=== PATIENT | male | born 1930 | race Caucasian/White ===

== ENCOUNTER 2017-01-05 15:16 | Inpatient (IN) | payer OTHER ==
[~2017-01-05] VITALS: Ht 180.3 cm; Wt 104.3 kg
[2017-01-05 15:21] VITALS: BP 116/84
--- NOTE | 2017-01-05 15:23 | Emergency Room Report ---
History of Present Illness General Chief Complaint: Dyspnea/Respdistress Source: Patient, EMS Present Illness HPI Patient is 86-year-old male who presented after increased difficulty with shortness of breath. The patient was sent in from his nursing facility. Patient prior history of dementia as well as psychosis. The patient gradual onset of symptoms. Patient was noted to have diminished oxygen saturation was sent in for further evaluation. Patient was noted to have prior history of bronchitis. He had been afebrile. The patient was noted to have prior DO NOT RESUSCITATE order. Patient was given comfort measures. Allergies: Coded Allergies: No Known Allergies (Verified , 05/15/09) Patient History Past Medical History: see triage record Reviewed Nursing Documentation: PMH: Agreed, PSxH: Agreed Nursing Documentation-PMH Past Medical History: No History, Except For Hx Hypertension: Yes Hx Gastrointestinal Problems: Yes - GERD Review of Systems All Other Systems: limited - by mental status Physical Exam Vital Signs Date Time Temp Pulse Resp B/P (MAP) Pulse Ox O2 Delivery O2 Flow Rate FiO2 01/05/17 15:11 97.9 80 20 150/94 96 Non-Rebreather 15.0 Sp02 EP Interpretation: reviewed, normal General Appearance: normal inspection, alert, moderate distress, Chronically Ill Head: atraumatic ENT: normal ENT inspection, hearing grossly normal, normal voice Neck: normal inspection, full range of motion, supple, no bony tend, other - trachea deviation Respiratory: normal inspection, no retraction, no wheezing, rhonchi Cardiovascular #1: no edema, irregularly irregular Gastrointestinal: normal inspection, normal bowel sounds, non tender, soft, no guarding, no hernia Genitourinary: no CVA tenderness Musculoskeletal: normal inspection, back normal, normal range of motion Neurologic: normal inspection, alert, oriented x3, responsive, forger helper III-XII nml as tested, speech normal Psychiatric: normal inspection, judgement/insight normal, mood/affect normal Skin: normal inspection, normal color, no rash Medical Decision Making Diagnostic Impression: Primary Impression: Pneumonia Additional Impression: Hyponatremia ER Course Patient presented for shortness of breath. Differential included but was not limited to anemia, pneumonia, pneumothorax, myocardial infarction, pericardial effusion, congestive heart failure, acidosis. The patient's POLST was noted to have comfort measures only. Because of complexity of patient's case laboratory testing and imaging studies were ordered. The patient's CODE STATUS was discussed with his sister who stated that he is DO NOT RESUSCITATE. She stated that she consented to hospitalization. Chest x- ray one view interpreted by me showed a right lung atelectasis with white out of the lung, mild tracheal deviation. The patient was noted to have hyponatremia. Dr. Graeme Oropeza was contacted for inpatient management Labs Test 01/05/17 16:34 White Blood Count 24.2 K/UL (4.8-10.8) Red Blood Count 4.12 M/UL (4.70-6.10) Hemoglobin 12.8 G/DL (14.2-18.0) Hematocrit 40.8 % (42.0-52.0) Mean Corpuscular Volume 99 FL (80-99) Mean Corpuscular Hemoglobin 31.2 PG (27.0-31.0) Mean Corpuscular Hemoglobin Concent 31.5 G/DL (32.0-36.0) Red Cell Distribution Width 11.2 % (11.6-14.8) Platelet Count 452 K/UL (150-450) Mean Platelet Volume 6.7 FL (6.5-10.1) Neutrophils (%) (Auto) % (45.0-75.0) Lymphocytes (%) (Auto) % (20.0-45.0) Monocytes (%) (Auto) % (1.0-10.0) Eosinophils (%) (Auto) % (0.0-3.0) Basophils (%) (Auto) % (0.0-2.0) Differential Total Cells Counted 100 Neutrophils % (Manual) 86 % (45-75) Lymphocytes % (Manual) 3 % (20-45) Monocytes % (Manual) 11 % (1-10) Eosinophils % (Manual) 0 % (0-3) Basophils % (Manual) 0 % (0-2) Band Neutrophils 0 % (0-8) Platelet Estimate Adequate Platelet Morphology Normal Polychromasia 1+ Macrocytosis 1+ Sodium Level 118 MMOL/L (136-145) Potassium Level 4.7 MMOL/L (3.5-5.1) Chloride Level 86 MMOL/L (98-107) Carbon Dioxide Level 25 MMOL/L (21-32) Anion Gap 7 (5-15) Blood Urea Nitrogen 21 mg/dL (7-18) Creatinine 1.2 MG/DL (0.55-1.30) Estimat Glomerular Filtration Rate mL/min (>60) Glucose Level 166 MG/DL (74-106) Calcium Level 9.3 MG/DL (8.5-10.1) Total Bilirubin 0.4 MG/DL (0.2-1.0) Aspartate Amino Transf (AST/SGOT) 26 U/L (15-37) Alanine Aminotransferase (ALT/SGPT) 17 U/L (12-78) Alkaline Phosphatase 152 U/L (46-116) Troponin I 0.017 ng/mL (0.000-0.056) Pro-B-Type Natriuretic Peptide 4686 (0-125) Total Protein 7.8 G/DL (6.4-8.2) Albumin 2.3 G/DL (3.4-5.0) Globulin 5.5 g/dL Albumin/Globulin Ratio 0.4 (1.0-2.7) EKG Diagnostic Results Rate: tachycardiac Rhythm: other - afib rvr ST Segments: no acute changes ASA given to the pt in ED: No Rhythm Strip Diag. Results EP Interpretation: yes Rhythm: no PVC's, no ectopy, other - afib Last Vital Signs Date Time Temp Pulse Resp B/P (MAP) Pulse Ox O2 Delivery O2 Flow Rate FiO2 01/05/17 15:11 97.9 80 20 150/94 96 Non-Rebreather 15.0 Status: improved Disposition: ADMITTED INPATIENT Condition: Serious Neel Pike Jan 05, 2017 15:23
[2017-01-05] MEDS ORDERED: Albuterol/Ipratropium 3ml neb HHN ONE (15:30)
[2017-01-05] MEDS ORDERED: Solu-MEDROL 125mg Inj IVP ONE (15:30)
[2017-01-05 16:50] LABS: MEAN CORPUSCULAR HEMOGLOBIN 31.2 PG (27.0-31.0); MEAN CORPUSCULAR HGB CONC 31.5 G/DL (32.0-36.0); MEAN CORPUSCULAR VOLUME 99 FL (80-99); MEAN PLATELET VOLUME 6.7 FL (6.5-10.1); PLATELET COUNT 452 K/UL (150-450); RED BLOOD COUNT 4.12 M/UL (4.70-6.10); RED CELL DISTRIBUTION WIDTH 11.2 % (11.6-14.8)
[2017-01-05 16:55] LABS: WHITE BLOOD COUNT 24.2 K/UL (4.8-10.8)
[2017-01-05] MEDS ORDERED: Cefepime HCl 2 GM in D5W 110 ML IVPB ONE (17:00)
[2017-01-05] MEDS ORDERED: Cefepime 2gm ONE (17:07)
[2017-01-05 17:32] LABS: LYMPHOCYTES % (MANUAL) 3 % (20-45); NEUTROPHILS % (MANUAL) 86 % (45-75); TOTAL CELLS COUNTED 100
[2017-01-05 17:33] LABS: ALANINE AMINOTRANSFERASE 17 U/L (12-78); ALBUMIN/GLOBULIN RATIO 0.4 (1.0-2.7); ANION GAP 7 (5-15); ASPARTATE AMINO TRANSFERASE 26 U/L (15-37); BAND NEUTROPHILS % (MANUAL) 0 % (0-8); BASOPHILS % (MANUAL) 0 % (0-2); CALCIUM 9.3 MG/DL (8.5-10.1); CARBON DIOXIDE 25 MMOL/L (21-32); CHLORIDE 86 MMOL/L (98-107); CREATININE 1.2 MG/DL (0.55-1.30); EOSINOPHILS % (MANUAL) 0 % (0-3); PLATELET ESTIMATE ADEQUATE; PLATELET MORPHOLOGY NORMAL; POTASSIUM 4.7 MMOL/L (3.5-5.1); TOTAL PROTEIN 7.8 G/DL (6.4-8.2)
[2017-01-05 17:34] LABS: MACROCYTES 1+; POLYCHROMASIA 1+
[2017-01-05 17:35] LABS: SODIUM 118 MMOL/L (136-145)
[2017-01-05 18:00] VITALS: BP 116/84
[2017-01-05] MEDS ORDERED: SIMETHICONE80 MG ORAL (18:11)
[2017-01-05] MEDS ORDERED: ACETAMINOPHEN325 M1 ORAL (18:11)
[2017-01-05] MEDS ORDERED: PHENERGAN W CODEINE ORAL (18:17)
[2017-01-05] MEDS ORDERED: PRAVASTATIN SOD20 M1 ORAL (18:17)
[2017-01-05] MEDS ORDERED: OXYBUTYNIN CHLOR5 M2 PO (18:17)
[2017-01-05] MEDS ORDERED: COLACE100 MG ORAL (18:17)
[2017-01-05] MEDS ORDERED: SYMBICORT 16010.2 G1 IH (18:17)
[2017-01-05] MEDS ORDERED: PROSCAR5 MG ORAL (18:17)
[2017-01-05] MEDS ORDERED: TAMSULOSIN HCL0.4 MG ORAL (18:20)
[2017-01-05] MEDS ORDERED: DUONEB 0.5-3(2.53 ML HHN (18:20)
[2017-01-05] MEDS ORDERED: TRAZODONE HCL150 MG ORAL (18:20)
[2017-01-05] MEDS ORDERED: MULTIVITAMINS1 EAC8 ORAL (18:21)
[2017-01-05] MEDS ORDERED: AMLODIPINE BESY10 MG ORAL (18:24)
[2017-01-05] MEDS ORDERED: ASPIRIN325 MG ORAL (18:24)
[2017-01-05] MEDS ORDERED: PROSTAT SUGARFREE ORAL (18:24)
[2017-01-05] MEDS ORDERED: VITAMIN D1000 UNI1 ORAL (18:24)
[2017-01-05] MEDS ORDERED: ATENOLOL50 MG ORAL (18:24)
[2017-01-05] MEDS ORDERED: OMEGA 3 1,0001 EACH PO (18:24)
[2017-01-05] MEDS: Albuterol/Ipratropium 3ml neb HHN SCH ×2 (19:00→23:55)
[2017-01-05] MEDS ORDERED: Vancomycin 1 GM in D5W 275 ML IV SCH (19:00)
[2017-01-05 20:00] VITALS: BP 158/124
[2017-01-05] MEDS: Vancomycin 1.5 GM/D5W 250ML IVPB SCH (21:32)
[2017-01-05 21:40] VITALS: BP 127/78
--- NOTE | 2017-01-05 23:17 | History and Physical Report ---
DATE OF ADMISSION: 01/05/2017 CHIEF COMPLAINT: Short of breath. PRESENT ILLNESS: This long-term senior living resident was transferred to the emergency room because of a low saturation and some shortness of breath. He has dementia and is a poor historian. He has some chronic cough and has been followed recently for possible pneumonia and pleural effusion. PAST MEDICAL HISTORY: Hypertension, dementia, prostate enlargement, acid reflux, diverticulosis, osteoarthritis, TURP, and cataract surgery. ALLERGIES: None. MEDICATIONS: Reviewed and reconciled. SOCIAL HISTORY: He does not drink or smoke. He lives in a senior living. REVIEW OF SYSTEMS: Cannot be obtained. PHYSICAL EXAMINATION: VITAL SIGNS: Temperature is normal, pulse is 80, respirations 20, blood pressure 150/94, and saturation was 96% on non-rebreather mask. GENERAL: He is alert, but somewhat argumentative. He appears overweight. HEENT: Head is normocephalic. NECK: No jugular vein distention. CHEST: Decreased breath sounds on the right side. The neck shows the trachea is deviated to the right. There are rhonchi on the left side. CARDIAC: Rhythm is regular. Heart tones are distant. ABDOMEN: Soft and nontender. Liver and spleen not enlarged. EXTREMITIES: No clubbing, cyanosis, or edema. LABORATORY DATA: Laboratory studies show the sodium is low at 118, potassium is normal, creatinine 1.2, blood sugar 166, alkaline phosphatase elevated at 152, BNP 4686. Troponin normal. Albumin 2.3. Hematology shows white count is 24,200, hemoglobin is 12.8, and platelets are high at 452,000. Chest x-ray shows complete atelectasis of the right lung. I spoke to the sister and confirmed that he is comfort measures only and no Code Blue. A POLST is on file at the nursing facility, but they did not send this with him. I have reviewed the notes from [facility] regarding this and his medical history. IMPRESSIONS: 1. Pneumonia with right lung atelectasis. 2. Dementia. 3. Hypertension. 4. Prostate enlargement. 5. Severe hyponatremia. 6. Peripheral vascular disease. 7. Major depression, recurrent, with moderate behavioral disturbance. 8. Hyperlipidemia. PLAN: The patient will be treated with oxygen and respiratory treatments, chest PT, antibiotics, and we will give saline. Nephrology consultation will be requested. He will be DNR as confirmed with his sister. Graeme Oropeza M.D. DR: HUSAM JOB#: [id number] CC:
[2017-01-06] VITALS: BP 156/94
[2017-01-06] MEDS: LORazepam 1mg tab ORAL PRN (02:01)
[2017-01-06] MEDS ORDERED: Zosyn 4.5gm inj ONE (03:10)
[2017-01-06] MEDS: Piperacillin/Tazobactam 4.5 GM in NS 110 ML IV SCH ×5 (03:23→22:00)
[2017-01-06] MEDS: Albuterol/Ipratropium 3ml neb HHN SCH ×6 (03:40→23:05)
[2017-01-06 07:51] LABS: MEAN CORPUSCULAR HEMOGLOBIN 31.6 PG (27.0-31.0); MEAN CORPUSCULAR HGB CONC 32.4 G/DL (32.0-36.0); MEAN CORPUSCULAR VOLUME 98 FL (80-99); MEAN PLATELET VOLUME 7.3 FL (6.5-10.1); PLATELET COUNT 430 K/UL (150-450); RED BLOOD COUNT 4.15 M/UL (4.70-6.10); RED CELL DISTRIBUTION WIDTH 11.1 % (11.6-14.8); WHITE BLOOD COUNT 20.3 K/UL (4.8-10.8)
[2017-01-06 07:58] LABS: ALANINE AMINOTRANSFERASE 16 U/L (12-78); ALBUMIN/GLOBULIN RATIO 0.4 (1.0-2.7); ANION GAP 9 (5-15); ASPARTATE AMINO TRANSFERASE 23 U/L (15-37); CARBON DIOXIDE 24 MMOL/L (21-32); CHLORIDE 87 MMOL/L (98-107); CREATININE 1.1 MG/DL (0.55-1.30); POTASSIUM 4.5 MMOL/L (3.5-5.1); SODIUM 120 MMOL/L (136-145); TOTAL PROTEIN 7.6 G/DL (6.4-8.2)
[2017-01-06 08:41] VITALS: BP 148/78
--- NOTE | 2017-01-06 09:53 | Diagnostic Imaging Report ---
Indication: SOB Technique: One view of the chest Comparison: 05/16/2009 Findings: There is complete opacification of the right hemithorax. The patient is rotated to the right. The left lung and pleural space are clear except for mild interstitial prominence. The left hemidiaphragm is markedly elevated. The heart size is probably normal Impression: Complete opacification of the right hemithorax. This may reflect atelectasis of the right lung, versus mass with, versus combination of the two
[2017-01-06 11:38] LABS: BAND NEUTROPHILS % (MANUAL) 0 % (0-8); BASOPHILS % (MANUAL) 0 % (0-2); EOSINOPHILS % (MANUAL) 0 % (0-3); LYMPHOCYTES % (MANUAL) 3 % (20-45); NEUTROPHILS % (MANUAL) 91 % (45-75); PLATELET ESTIMATE ADEQUATE; PLATELET MORPHOLOGY NORMAL; TOTAL CELLS COUNTED 100
[2017-01-06 11:56] VITALS: BP 151/91
--- NOTE | 2017-01-06 14:56 | Pulmonology Progress Note ---
Assessment/Plan Assessment/Plan 1. Pneumonia with right lung atelectasis. 2. Dementia. 3. Hypertension. 4. Prostate enlargement. 5. Severe hyponatremia. 6. Peripheral vascular disease. 7. Major depression, recurrent, with moderate behavioral disturbance. 8. Hyperlipidemia. called nephrology Na better at 120 f/u CXR CT chest cont abx Subjective Respiratory: Reports: dry cough, shortness of breath Allergies: Coded Allergies: No Known Allergies (Verified , 05/15/09) Objective Last 24 Hour Vital Signs Date Time Temp Pulse Resp B/P (MAP) Pulse Ox O2 Delivery O2 Flow Rate FiO2 01/06/17 14:36 126 151/91 01/06/17 14:36 126 151/91 01/06/17 11:56 98.0 126 22 151/91 93 Non-Rebreather 14.0 01/06/17 11:10 102 20 96 Venturi Mask 14.0 55 01/06/17 11:04 97 20 55 Venturi Mask 14.0 55 01/06/17 08:41 97.4 54 18 148/78 99 Non-Rebreather 14.0 01/06/17 07:25 119 23 96 Venturi Mask 14.0 55 01/06/17 07:20 114 20 55 Venturi Mask 14.0 55 01/06/17 07:20 115 23 Venturi Mask 14.0 55 01/06/17 03:47 96 22 96 Non-Rebreather 15.0 100 01/06/17 03:47 108 24 93 Venturi Mask 14.0 55 01/06/17 00:00 97.9 96 20 156/94 94 Venturi Mask 01/05/17 23:57 106 24 100 Non-Rebreather 15.0 100 01/05/17 23:57 101 22 100 Non-Rebreather 15.0 100 01/05/17 21:40 97.9 88 30 127/79 100 Non-Rebreather 15.0 100 01/05/17 21:40 98.4 88 35 127/78 98 Non-Rebreather 15.0 01/05/17 20:00 98.4 102 35 158/124 98 Non-Rebreather 15.0 01/05/17 19:48 110 25 100 Non-Rebreather 15.0 100 01/05/17 19:40 98 23 100 Non-Rebreather 15.0 100 01/05/17 19:40 96 23 Non-Rebreather 15.0 100 01/05/17 18:00 116 36 116/84 98 Non-Rebreather 15.0 01/05/17 16:40 115 26 100 Non-Rebreather 15.0 100 01/05/17 16:30 102 25 98 Non-Rebreather 15.0 100 01/05/17 16:30 102 25 Non-Rebreather 15.0 100 01/05/17 15:21 100 33 Non-Rebreather 15.0 01/05/17 15:21 100 33 116/84 100 Non-Rebreather 15.0 01/05/17 15:11 97.9 80 20 150/94 96 Non-Rebreather 15.0 Intake and Output 01/06/17 01/07/17 19:00 07:00 Intake Total 220 ml Balance 220 ml Intake Oral 220 ml # Voids 2 HEENT: atraumatic Respiratory/Chest: decreased breath sounds - right, rhonchi - left Cardiovascular: regular rhythm, other - distant tones Abdomen: soft, non tender Extremities: other - edema 1+ Laboratory Tests 01/05/17 16:34: White Blood Count 24.2*H, Red Blood Count 4.12L, Hemoglobin 12.8L, Hematocrit 40.8L, Mean Corpuscular Volume 99, Mean Corpuscular Hemoglobin 31.2H, Mean Corpuscular Hemoglobin Concent 31.5L, Red Cell Distribution Width 11.2L, Platelet Count 452H, Mean Platelet Volume 6.7, Neutrophils (%) (Auto) , Lymphocytes (%) (Auto) , Monocytes (%) (Auto) , Eosinophils (%) (Auto) , Basophils (%) (Auto) , Differential Total Cells Counted 100, Neutrophils % ( Manual) 86H, Lymphocytes % (Manual) 3L, Monocytes % (Manual) 11H, Eosinophils % (Manual) 0, Basophils % (Manual) 0, Band Neutrophils 0, Platelet Estimate Adequate, Platelet Morphology Normal, Polychromasia 1+, Macrocytosis 1+, Sodium Level 118*L, Potassium Level 4.7, Chloride Level 86L, Carbon Dioxide Level 25, Anion Gap 7, Blood Urea Nitrogen 21H, Creatinine 1.2, Estimat Glomerular Filtration Rate , Glucose Level 166H, Calcium Level 9.3, Total Bilirubin 0.4, Aspartate Amino Transf (AST/SGOT) 26, Alanine Aminotransferase (ALT/SGPT) 17, Alkaline Phosphatase 152H, Troponin I 0.017, Pro-B-Type Natriuretic Peptide 4686H, Total Protein 7.8, Albumin 2.3L, Globulin 5.5, Albumin/Globulin Ratio 0.4L 01/06/17 05:10: White Blood Count 20.3H, Red Blood Count 4.15L, Hemoglobin 13.1L, Hematocrit 40.5L, Mean Corpuscular Volume 98, Mean Corpuscular Hemoglobin 31.6H, Mean Corpuscular Hemoglobin Concent 32.4, Red Cell Distribution Width 11.1L, Platelet Count 430, Mean Platelet Volume 7.3, Neutrophils (%) (Auto) , Lymphocytes (%) (Auto) , Monocytes (%) (Auto) , Eosinophils (%) (Auto) , Basophils (%) (Auto) , Differential Total Cells Counted 100, Neutrophils % ( Manual) 91H, Lymphocytes % (Manual) 3L, Monocytes % (Manual) 6, Eosinophils % ( Manual) 0, Basophils % (Manual) 0, Band Neutrophils 0, Platelet Estimate Adequate, Platelet Morphology Normal, Sodium Level 120L, Potassium Level 4.5, Chloride Level 87L, Carbon Dioxide Level 24, Anion Gap 9, Blood Urea Nitrogen 26H, Creatinine 1.1, Estimat Glomerular Filtration Rate , Glucose Level 195H, Calcium Level 9.0, Total Bilirubin 0.4, Aspartate Amino Transf (AST/SGOT) 23, Alanine Aminotransferase (ALT/SGPT) 16, Alkaline Phosphatase 143H, Total Protein 7.6, Albumin 2.2L, Globulin 5.4, Albumin/Globulin Ratio 0.4L, Red Blood Cell Morphology Normal Current Medications Medications (Trade) Dose Ordered Sig/Trini Route PRN Reason Start Time Stop Time Status Last Admin Dose Admin Acetaminophen (Tylenol) 650 mg Q4H PRN ORAL Mild Pain (Pain Scale 1-3) 01/05/17 18:00 02/04/17 17:59 Albuterol/ Ipratropium (DuoNeb 0.5-3(2.5)mg/3ml) 3 ml Q4HRT HHN 01/05/17 19:00 01/10/17 18:59 01/06/17 11:09 Amlodipine Besylate (Norvasc) 10 mg DAILY ORAL 01/06/17 14:30 02/05/17 14:29 01/06/17 14:36 Aspirin (ASA) 325 mg DAILY ORAL 01/06/17 14:30 02/05/17 14:29 01/06/17 14:35 Atenolol (Tenormin) 50 mg DAILY ORAL 01/06/17 14:30 02/05/17 14:29 01/06/17 14:36 Docusate Sodium (Colace) 250 mg BID ORAL 01/06/17 18:00 02/05/17 17:59 Finasteride (Proscar) 5 mg DAILY ORAL 01/07/17 09:00 02/06/17 08:59 Lorazepam (Ativan) 1 mg Q4H PRN ORAL For Anxiety 01/05/17 18:00 01/12/17 17:59 01/06/17 02:01 Multivitamins (Multivitamins) 1 tab DAILY ORAL 01/07/17 09:00 02/06/17 08:59 Oxybutynin Chloride (Ditropan) 5 mg DAILY ORAL 01/07/17 09:00 02/06/17 08:59 Piperacillin Sod/ Tazobactam Sod 4.5 gm/Sodium Chloride 110 ml @ 27.5 mls/hr EVERY 8 HOURS IV 01/05/17 22:00 01/12/17 21:59 01/06/17 10:49 Pravastatin Sodium (Pravachol) 40 mg BEDTIME ORAL 01/06/17 21:00 02/05/17 20:59 Sodium Chloride 1,000 ml @ 100 mls/hr Q10H IVLG 01/05/17 18:30 02/04/17 18:29 01/06/17 14:36 Tamsulosin HCl (Flomax) 0.4 mg BEDTIME ORAL 01/06/17 21:00 02/05/17 20:59 Trazodone HCl (Desyrel) 150 mg BEDTIME ORAL 01/06/17 21:00 02/05/17 20:59 Vancomycin HCl (Vanco rx to dose) 1 ea DAILY PRN MISC PER RXPROTOCOL 01/05/17 18:30 02/04/17 18:29 Vancomycin HCl/ Dextrose 250 ml @ 125 mls/hr Q24H IVPB 01/05/17 20:00 01/10/17 19:59 01/05/17 21:32 Vitamin D (Vitamin D) 1,000 intlu DAILY ORAL 01/07/17 09:00 02/06/17 08:59 TRACEE MILTON Jan 06, 2017 14:56
--- NOTE | 2017-01-06 15:28 | Consultation ---
Consult Note Consult Note #[id number] Full nephrology consult dicatated JULY FORD Jan 06, 2017 15:28
[2017-01-06 15:44] LABS: URIC ACID 5.7 MG/DL (2.6-7.2)
[2017-01-06 16:05] VITALS: BP 116/91
[2017-01-06] MEDS: Docusate 250mg cap ORAL SCH ×2 (17:50→17:53)
[2017-01-06 19:51] VITALS: BP 136/74
--- NOTE | 2017-01-06 20:30 | Consultation ---
DATE OF CONSULTATION: 01/06/2017 NEPHROLOGY CONSULT REFERRING PHYSICIAN: Graeme Oropeza M.D. REASON FOR CONSULTATION: Hyponatremia. HISTORY OF PRESENT ILLNESS: The patient is an very pleasant 86-year-old white male who is obese has some underlying dementia and hypertension has been in a long-term shelter was transferred to the emergency room of [facility] with low saturation and some shortness of breath, very poor historian, has had some chronic cough. Chest x-ray in the emergency room showing evidence of the complete whiteout of the right lung, possibly pleural effusion, and may be some pneumonia underneath. White counts [place] range [address]. He was found to have a serum sodium of 118 and has been started on normal saline at 100 mL/hour. Serum sodium now has come up to about 120. I have been asked to see him for this electrolyte abnormality. PAST MEDICAL HISTORY: Significant for dementia, benign prostatic hypertrophy, gastroesophageal reflux disease, diverticulosis, and osteoarthritis. PAST SURGICAL HISTORY: Status post TURP, status post cataract surgery. MEDICATIONS: At this point includes normal saline 100 mL/hour. He received cefepime and metronidazole in the emergency room. He has been started on Zosyn 4.5 gram IV q. 8 h, vancomycin 1.5 gram IV q. 24 h, amlodipine 10 mg p.o. daily, aspirin 325 mg p.o. daily, atenolol 50 mg p.o. daily, Proscar 5 mg p.o. daily, Atrovent nebulizer q. 4 h p.r.n., Ativan 1 mg p.o. q. 4 h p.r.n., Solu-Medrol 125 mg IV once, multivitamin one tablet p.o. daily, Ditropan 5 mg p.o. daily, pravastatin 40 mg p.o. daily, Flomax 0.4 mg p.o. daily, trazodone 150 mg p.o. daily, and vitamin D 1000 units p.o. daily. ALLERGIES: None. SOCIAL HISTORY: Resident of a shelter. No drinking or tobacco use at this point. REVIEW OF SYSTEMS: Impossible since he is not able to give me a very fruitful history. PHYSICAL EXAMINATION: GENERAL: He does not seem to be in much acute distress. He is obese. VITAL SIGNS: Blood pressure is 151/91, pulse of 126, respirations 22, temperature 98 degree Fahrenheit. HEENT: Head is atraumatic. Eyes, pupils are reactive to light. No evidence of papilledema. Ears canals are clear. Tympanic membranes are intact. Nose, nares are patent without any nasal discharge. He has a Venturi mask on. NECK: Supple. Jugular venous distention seems to be within normal limits or mildly increased. No cervical adenopathy. No thyromegaly. HEART: Regular rhythm. Tachycardic. LUNGS: Few rhonchi in both bases. Decreased air excursion on the right side. ABDOMEN: Supple. Bowel sounds positive. No hepatosplenomegaly. EXTREMITIES: Lower extremity shows 1+ pedal edema. NEUROLOGICAL: Cranial nerves seems to be grossly intact. He is oriented x3. LABORATORY DATA: Sodium 120, potassium 4.5, chloride 87, carbon dioxide 24, BUN 26, creatinine 1.1. WBC is 20.3, hemoglobin 13.1, hematocrit 40.5, and platelets of 438. IMPRESSION: 1. Hyponatremia with him being somewhat euvolemic or maybe borderline . I am suspecting possibility of sepsis and prerenal state causing this hyponatremia however in the presence of a lung issue, possible pneumonia, and syndrome of inappropriate secretion of ADH is also in the list of differential. 2. He does not seem to be in congestive heart failure. 3. Complete whiteout of the right lung could be due to some empyema and maybe underlying pneumonia. 4. Obesity. 5. Dementia. PLAN: I agree with IV fluids at this point with normal saline at 100 mL/hour. I am going to check a serum and urine osmolality, urine sodium, and serum uric acid, probably he will require thoracentesis and evaluation of the fluid of the right lung for possible empyema. I agree with IV antibiotics at this point and apparently he is DNR at this point. At the end, I would like to thank you, Dr. Oropeza for letting me be involved in the care of this very nice gentleman. Please do not hesitate to contact me if you have any questions. Adan Pizarro M.D. DR: Mike JOB#: [id number] CC:
[2017-01-06] MEDS: Tamsulosin 0.4mg cap ORAL SCH (20:31)
[2017-01-06] MEDS: TraZODone 100mg tab ORAL SCH (20:31)
[2017-01-06] MEDS: Vancomycin 1.5 GM/D5W 250ML IVPB SCH (21:47)
--- NOTE | 2017-01-06 23:03 | Cardiology Report ---
APPROVED REPORT EKG Measurement Heart [id number] Atrial fibrillation with rapid ventricular response Nonspecific ST and T wave abnormality Abnormal ECG
[2017-01-07] VITALS: BP 143/77
[2017-01-07] MEDS: Albuterol/Ipratropium 3ml neb HHN SCH ×6 (02:55→23:00)
[2017-01-07 04:00] VITALS: BP 123/57
[2017-01-07] MEDS: Piperacillin/Tazobactam 4.5 GM in NS 110 ML IV SCH ×3 (04:58→22:00)
[2017-01-07 07:10] LABS: MEAN CORPUSCULAR HEMOGLOBIN 31.9 PG (27.0-31.0); MEAN CORPUSCULAR HGB CONC 32.5 G/DL (32.0-36.0); MEAN CORPUSCULAR VOLUME 98 FL (80-99); PLATELET COUNT 469 K/UL (150-450); RED BLOOD COUNT 4.13 M/UL (4.70-6.10); RED CELL DISTRIBUTION WIDTH 11.3 % (11.6-14.8)
[2017-01-07 07:44] LABS: WHITE BLOOD COUNT 25.5 K/UL (4.8-10.8)
[2017-01-07] MEDS: Oxybutynin 5mg tab ORAL SCH (08:27)
[2017-01-07] MEDS: Vitamin D 1000 IU Tab ORAL SCH (08:31)
[2017-01-07] MEDS: Docusate 250mg cap ORAL SCH ×3 (08:31→17:50)
[2017-01-07 09:00] VITALS: BP 135/61
[2017-01-07 09:47] LABS: BAND NEUTROPHILS % (MANUAL) 0 % (0-8); BASOPHILS % (MANUAL) 0 % (0-2); EOSINOPHILS % (MANUAL) 0 % (0-3); LYMPHOCYTES % (MANUAL) 5 % (20-45); NEUTROPHILS % (MANUAL) 83 % (45-75); PLATELET ESTIMATE INCREASED; PLATELET MORPHOLOGY NORMAL; TOTAL CELLS COUNTED 100
--- NOTE | 2017-01-07 11:49 | Pulmonology Progress Note ---
Assessment/Plan Assessment/Plan 1. Pneumonia with right lung atelectasis. 2. Dementia. 3. Hypertension. 4. Prostate enlargement. 5. Severe hyponatremia. 6. Peripheral vascular disease. 7. Major depression, recurrent, with moderate behavioral disturbance. 8. Hyperlipidemia. called nephrology Na better at 120 f/u CXR CT chest cont abx Subjective Interval Events: Resting in bed Constitutional: Reports: no symptoms HEENT: Repors: no symptoms Allergies: Coded Allergies: No Known Allergies (Verified , 05/15/09) Objective Last 24 Hour Vital Signs Date Time Temp Pulse Resp B/P (MAP) Pulse Ox O2 Delivery O2 Flow Rate FiO2 01/07/17 09:00 97.9 96 21 135/61 98 Room Air 01/07/17 08:32 96 139/98 01/07/17 08:31 96 139/98 01/07/17 06:42 110 28 93 Non-Rebreather 15.0 100 01/07/17 06:30 106 30 93 Non-Rebreather 15.0 100 01/07/17 06:30 106 30 Non-Rebreather 15.0 100 01/07/17 04:00 97.3 94 20 123/57 97 Non-Rebreather 10.0 01/07/17 03:08 104 30 93 Non-Rebreather 15.0 100 01/07/17 02:57 100 24 99 Non-Rebreather 15.0 100 01/07/17 01:32 125 28 Non-Rebreather 15.0 100 01/07/17 00:00 97.0 94 21 143/77 92 Nasal Cannula 2.0 01/06/17 23:16 96 24 95 Venturi Mask 14.0 55 01/06/17 23:07 93 24 93 Venturi Mask 14.0 55 01/06/17 19:51 97.0 100 20 136/74 93 01/06/17 19:25 Venturi Mask 14.0 55 01/06/17 19:24 125 26 92 Venturi Mask 14.0 55 01/06/17 19:15 125 24 Venturi Mask 14.0 55 01/06/17 16:05 98.1 101 17 116/91 97 Venturi Mask 15.0 01/06/17 15:37 94 22 96 Venturi Mask 14.0 55 01/06/17 15:31 91 22 55 Venturi Mask 14.0 55 01/06/17 14:36 126 151/91 01/06/17 14:36 126 151/91 01/06/17 11:56 98.0 126 22 151/91 93 Non-Rebreather 14.0 Intake and Output 01/07/17 01/08/17 19:00 07:00 Intake Total 240 ml Balance 240 ml Intake Oral 240 ml General Appearance: no acute distress HEENT: normocephalic Respiratory/Chest: chest wall non-tender, lungs clear Cardiovascular: normal peripheral pulses Microbiology Date/Time Source Procedure Growth Status 01/05/17 19:20 Nasal Nares MRSA Culture - Final Complete Laboratory Tests 01/07/17 04:45: White Blood Count 25.5*H, Red Blood Count 4.13L, Hemoglobin 13.2L, Hematocrit 40.6L, Mean Corpuscular Volume 98, Mean Corpuscular Hemoglobin 31.9H, Mean Corpuscular Hemoglobin Concent 32.5, Red Cell Distribution Width 11.3L, Platelet Count 469H, Mean Platelet Volume 7.0, Neutrophils (%) (Auto) , Lymphocytes (%) (Auto) , Monocytes (%) (Auto) , Eosinophils (%) (Auto) , Basophils (%) (Auto) , Differential Total Cells Counted 100, Neutrophils % ( Manual) 83H, Lymphocytes % (Manual) 5L, Monocytes % (Manual) 12H, Eosinophils % (Manual) 0, Basophils % (Manual) 0, Band Neutrophils 0, Platelet Estimate IncreasedH, Platelet Morphology Normal Current Medications Medications (Trade) Dose Ordered Sig/Trini Route PRN Reason Start Time Stop Time Status Last Admin Dose Admin Acetaminophen (Tylenol) 650 mg Q4H PRN ORAL Mild Pain (Pain Scale 1-3) 01/05/17 18:00 02/04/17 17:59 Albuterol/ Ipratropium (DuoNeb 0.5-3(2.5)mg/3ml) 3 ml Q4HRT HHN 01/05/17 19:00 01/10/17 18:59 01/07/17 06:32 Amlodipine Besylate (Norvasc) 10 mg DAILY ORAL 01/06/17 14:30 02/05/17 14:29 01/07/17 08:31 Aspirin (ASA) 325 mg DAILY ORAL 01/06/17 14:30 02/05/17 14:29 01/07/17 08:31 Atenolol (Tenormin) 50 mg DAILY ORAL 01/06/17 14:30 02/05/17 14:29 01/07/17 08:32 Docusate Sodium (Colace) 250 mg BID ORAL 01/06/17 18:00 02/05/17 17:59 01/07/17 08:31 Finasteride (Proscar) 5 mg DAILY ORAL 01/07/17 09:00 02/06/17 08:59 01/07/17 08:31 Lorazepam (Ativan) 1 mg Q4H PRN ORAL For Anxiety 01/05/17 18:00 01/12/17 17:59 01/06/17 02:01 Multivitamins (Multivitamins) 1 tab DAILY ORAL 01/07/17 09:00 02/06/17 08:59 01/07/17 08:29 Oxybutynin Chloride (Ditropan) 5 mg DAILY ORAL 01/07/17 09:00 02/06/17 08:59 01/07/17 08:27 Piperacillin Sod/ Tazobactam Sod 4.5 gm/Sodium Chloride 110 ml @ 27.5 mls/hr EVERY 8 HOURS IV 01/05/17 22:00 01/12/17 21:59 01/07/17 04:58 Pravastatin Sodium (Pravachol) 40 mg BEDTIME ORAL 01/06/17 21:00 02/05/17 20:59 01/06/17 20:31 Sodium Chloride 1,000 ml @ 100 mls/hr Q10H IVLG 01/05/17 18:30 02/04/17 18:29 01/07/17 07:17 Tamsulosin HCl (Flomax) 0.4 mg BEDTIME ORAL 01/06/17 21:00 02/05/17 20:59 01/06/17 20:31 Trazodone HCl (Desyrel) 150 mg BEDTIME ORAL 01/06/17 21:00 02/05/17 20:59 01/06/17 20:31 Vancomycin HCl (Vanco rx to dose) 1 ea DAILY PRN MISC PER RXPROTOCOL 01/05/17 18:30 02/04/17 18:29 Vancomycin HCl/ Dextrose 250 ml @ 125 mls/hr Q24H IVPB 01/05/17 20:00 01/10/17 19:59 01/06/17 21:47 Vitamin D (Vitamin D) 1,000 intlu DAILY ORAL 01/07/17 09:00 02/06/17 08:59 01/07/17 08:31 Jose Willson MD Jan 07, 2017 11:49
[2017-01-07 12:00] VITALS: BP 126/59
[2017-01-07 12:43] LABS: ANION GAP 9 (5-15); CARBON DIOXIDE 24 MMOL/L (21-32); CHLORIDE 95 MMOL/L (98-107); CREATININE 1.1 MG/DL (0.55-1.30); POTASSIUM 4.9 MMOL/L (3.5-5.1); SODIUM 128 MMOL/L (136-145)
[2017-01-07 13:14] LABS: PROTHROMBIN TIME 10.7 SEC (9.30-11.50)
--- NOTE | 2017-01-07 14:51 | Physician Query ---
PLEASE COMPLETE THE FORM BEFORE SIGNING Dear Dr. Rey Date: 01/07/2017 Vegetable Handler/CDS Name: _Fracisco Leong MD_ Vegetable Handler/CDS Phone No.: [phone] Exercise your independent professional judgment when responding to query. Questions asked do not imply particular answer is desired or expected. We greatly appreciate your clarification on this issue. Clinical Documentation States: "Shortness of breath" as per ED Provider Note & Dr. Oropeza's History & Physical Clinical Findings Show: "Shortness of breath, decreased breath sounds - right, rhonchi - left" as per Dr. Oropeza's History & Physical Patient on Non-Rebreather Please clarify if the patient had any of the following conditions based on the above clinical findings: [x]Respiratory Failure [x] Acute [] Chronic (on home O2) []Acute on Chronic [] Acute Respiratory Distress [] Acute Respiratory Insufficiency [] Respiratory failure due to trauma [] Respiratory insufficiency due to trauma [] Unable to determine [] Other: Condition Present on Admission: [x] Yes [] No []Clinically Undeterminable Please also document in your Progress Notes and/or Discharge Summary and indicate if the condition was present on admission. Graeme Oropeza M.D. Date & Time [facility]
--- NOTE | 2017-01-07 16:05 | Diagnostic Imaging Report ---
Indication: Status post thoracentesis Comparison: 1117 A single view chest radiograph was obtained. Findings: There is no pneumothorax identified following thoracentesis. The large right pleural effusion has nearly resolved. There maybe some minimal residual present. Much of the right lung has reexpanded. There is pulmonary edema present. Impression: Status post large volume right thoracentesis. No pneumothorax
[2017-01-07] MEDS ORDERED: Tubing IV Secondary IV ONE (16:16)
[2017-01-07] MEDS ORDERED: Heparin 2000 units/Ns 1000ml INJ PRN (17:00)
[2017-01-07] MEDS ORDERED: Lidocaine 1% Plain 30 ml INJ PRN (17:00)
--- NOTE | 2017-01-07 17:03 | Diagnostic Imaging Report ---
Indication: Dyspnea Technique: Continuous helical transaxial imaging of the chest was obtained from the thoracic inlet to the upper abdomen. No intravenous contrast was administered. Coronal 2-D reformats were also obtained. Total Dose length Product (DLP): [address] Dose Index Volume (CTDIvol): 2.15, 20.38 mGy Comparison: none Findings: There is a right pleural effusion present from the apex to base. There is complete atelectasis of the right lung. There is a trace left pleural effusion also noted. Posterior basilar atelectasis on the left noted. Aorta shows mural calcification. The heart is enlarged. Small hiatal hernia is present. The stomach is moderately distended. There are probable gallstones. There is narrowing of intervertebral discs and accompanying endplate osteophyte formation. Hypertrophied facet joints also demonstrated.. Impression: Large right pleural effusion with complete atelectasis of the right lung. Her graft trace left pleural effusion and posterior basal atelectasis mild in degree. Atherosclerotic disease Cardiomegaly Probable gallstones Spondylosis The CT scanner at [facility] is accredited by the [employer] and the scans are performed using dose optimization techniques as appropriate to a performed exam including Automatic Exposure control.
--- NOTE | 2017-01-07 19:13 | Nephrology Progress Note ---
Assessment/Plan Assessment 1) Hyponatremia with IV fluid 2) Sepsis with leukocytosis 3) R/O R sided empyema Plan: Needs urine studies Awaiting Pleural fluid results Continue IVF Subjective Subjective He sis lethargic, still on O2, Thoracentesis was done, results pending, serum NA is up to 128, Uric acid was 5.7, urine studies was not sent Objective Objective Last 24 Hour Vital Signs Date Time Temp Pulse Resp B/P (MAP) Pulse Ox O2 Delivery O2 Flow Rate FiO2 01/07/17 15:00 Non-Rebreather 15.0 100 01/07/17 15:00 Non-Rebreather 15.0 100 01/07/17 12:22 112 28 94 Non-Rebreather 15.0 100 01/07/17 12:10 89 26 94 Non-Rebreather 15.0 100 01/07/17 12:00 97.5 111 20 126/59 96 Venturi Mask 15.0 01/07/17 09:00 97.9 96 21 135/61 98 Room Air 01/07/17 08:32 96 139/98 01/07/17 08:31 96 139/98 01/07/17 06:42 110 28 93 Non-Rebreather 15.0 100 01/07/17 06:30 106 30 93 Non-Rebreather 15.0 100 01/07/17 06:30 106 30 Non-Rebreather 15.0 100 01/07/17 04:00 97.3 94 20 123/57 97 Non-Rebreather 10.0 01/07/17 03:08 104 30 93 Non-Rebreather 15.0 100 01/07/17 02:57 100 24 99 Non-Rebreather 15.0 100 01/07/17 01:32 125 28 Non-Rebreather 15.0 100 01/07/17 00:00 97.0 94 21 143/77 92 Nasal Cannula 2.0 01/06/17 23:16 96 24 95 Venturi Mask 14.0 55 01/06/17 23:07 93 24 93 Venturi Mask 14.0 55 01/06/17 19:51 97.0 100 20 136/74 93 01/06/17 19:25 Venturi Mask 14.0 55 01/06/17 19:24 125 26 92 Venturi Mask 14.0 55 01/06/17 19:15 125 24 Venturi Mask 14.0 55 Intake and Output 01/07/17 01/08/17 19:00 07:00 Intake Total 480 ml Balance 480 ml Intake Oral 480 ml Laboratory Tests 01/07/17 04:45: White Blood Count 25.5*H, Red Blood Count 4.13L, Hemoglobin 13.2L, Hematocrit 40.6L, Mean Corpuscular Volume 98, Mean Corpuscular Hemoglobin 31.9H, Mean Corpuscular Hemoglobin Concent 32.5, Red Cell Distribution Width 11.3L, Platelet Count 469H, Mean Platelet Volume 7.0, Neutrophils (%) (Auto) , Lymphocytes (%) (Auto) , Monocytes (%) (Auto) , Eosinophils (%) (Auto) , Basophils (%) (Auto) , Differential Total Cells Counted 100, Neutrophils % ( Manual) 83H, Lymphocytes % (Manual) 5L, Monocytes % (Manual) 12H, Eosinophils % (Manual) 0, Basophils % (Manual) 0, Band Neutrophils 0, Platelet Estimate IncreasedH, Platelet Morphology Normal 01/07/17 11:55: Prothrombin Time 10.7, Prothromb Time International Ratio 1.0, Activated Partial Thromboplast Time 34H, Sodium Level 128L, Potassium Level 4.9, Chloride Level 95L, Carbon Dioxide Level 24, Anion Gap 9, Blood Urea Nitrogen 43H, Creatinine 1.1, Estimat Glomerular Filtration Rate , Glucose Level 209H, Calcium Level 9.0 01/07/17 18:20: Body Fluid Source [Pending], Body Fluid Volume [Pending], Body Fluid Appearance [Pending], Body Fluid pH [Pending], Body Fluid RBC [Pending], Body Fluid Total Nucleated Cells [Pending], Body Fluid Polynuclear WBCs (%) [Pending], Body Fluid Mononuclear WBCs (%) [Pending], Body Fluid Mesothelial Cells (%) [Pending] , Body Fluid Total Protein [Pending], Body Fluid Lactate Dehydrogenase [Pending] Height (Feet): 5 Height (Inches): 11.00 Weight (Pounds): 230 General Appearance: WD/WN, no apparent distress EENT: PERRL/EOMI Neck: non-tender, normal alignment Cardiovascular: normal rate Respiratory/Chest: lungs clear, decreased breath sounds Abdomen: normal bowel sounds, non tender Extremities: moderate edema Neurologic: ui developer II-XII grossly normal JULY FORD Jan 07, 2017 19:13
[2017-01-07 19:34] VITALS: BP 130/81
[2017-01-07] MEDS: Vancomycin 1.5 GM/D5W 250ML IVPB SCH (20:00)
[2017-01-07] MEDS: Dyna-Hex 2% Top Sol 2oz TOPIC SCH (20:00)
[2017-01-07 20:43] LABS: APPEARANCE, BODY FLUID HAZY; BD FL VOLUME 24 mL
[2017-01-07 20:44] LABS: BD FL SOURCE THORACENTESIS; BODY FLUID NUCLEATED CELLS 1120 /CUMM; BODY FLUID RBC 5280 /CUMM; MONONUCLEAR WBC 82 %; POLYMORPHONUCLEAR WBC 18 %
[2017-01-07] MEDS: Tamsulosin 0.4mg cap ORAL SCH (22:04)
[2017-01-07] MEDS: TraZODone 100mg tab ORAL SCH (22:04)
[2017-01-07 23:50] VITALS: BP 138/72
[2017-01-08] MEDS: Albuterol/Ipratropium 3ml neb HHN SCH ×6 (03:19→23:32)
[2017-01-08 03:51] VITALS: BP 132/83
[2017-01-08] MEDS: Piperacillin/Tazobactam 4.5 GM in NS 110 ML IV SCH ×3 (06:00→21:40)
[2017-01-08 09:00] VITALS: BP 135/84
[2017-01-08] MEDS: Oxybutynin 5mg tab ORAL SCH (09:12)
[2017-01-08] MEDS: Docusate 250mg cap ORAL SCH ×2 (09:13→18:04)
[2017-01-08] MEDS: Vitamin D 1000 IU Tab ORAL SCH (09:13)
--- NOTE | 2017-01-08 10:03 | Diagnostic Imaging Report ---
Indication: Shortness of breath Comparison: 01/07/2013 chest one view Findings: Single view the chest is obtained. Since the prior exam, there is increasing density throughout the right hemithorax likely representing worsening right pleural effusion. Left lung remains clear. No left pleural effusion. Cardiomegaly remains. Mild bilateral congestive changes persist. Impression: Interval worsening of right pleural effusion since prior examination one day earlier. Otherwise no change.
[2017-01-08 10:11] LABS: MEAN CORPUSCULAR HEMOGLOBIN 32.3 PG (27.0-31.0); MEAN CORPUSCULAR HGB CONC 32.6 G/DL (32.0-36.0); MEAN CORPUSCULAR VOLUME 99 FL (80-99); MEAN PLATELET VOLUME 6.9 FL (6.5-10.1); PLATELET COUNT 371 K/UL (150-450); RED BLOOD COUNT 3.55 M/UL (4.70-6.10); RED CELL DISTRIBUTION WIDTH 11.3 % (11.6-14.8); WHITE BLOOD COUNT 18.5 K/UL (4.8-10.8)
[2017-01-08 10:27] LABS: ANION GAP 5 (5-15); CALCIUM 9.1 MG/DL (8.5-10.1); CARBON DIOXIDE 26 MMOL/L (21-32); CHLORIDE 96 MMOL/L (98-107); POTASSIUM 4.3 MMOL/L (3.5-5.1); SODIUM 127 MMOL/L (136-145)
--- NOTE | 2017-01-08 10:35 | Nephrology Progress Note ---
Assessment/Plan Assessment 1) Hyponatremia improved with IV fluid, this is due to prerenal state 2) Sepsis with leukocytosis 3)R sided recurrent pleural effusion of ? etiology Plan: Awaiting lab results Awaiting Pleural fluid results Continue IVF Subjective Subjective He is confused, the pleural fluid shows mostly ? lymphocyts with 1125 wbc, urine NA is 10, WBC is down to 18.5 K Objective Objective Last 24 Hour Vital Signs Date Time Temp Pulse Resp B/P (MAP) Pulse Ox O2 Delivery O2 Flow Rate FiO2 01/08/17 09:13 94 132/83 01/08/17 09:12 94 132/83 01/08/17 09:00 97.3 113 21 135/84 100 Venturi Mask 15.0 01/08/17 08:31 82 20 98 Non-Rebreather 15.0 100 01/08/17 08:22 84 20 97 Non-Rebreather 15.0 100 01/08/17 08:22 84 20 Non-Rebreather 15.0 100 01/08/17 03:51 96.6 94 20 132/83 98 Non-Rebreather 01/08/17 03:29 90 20 93 Non-Rebreather 15.0 100 01/08/17 03:20 88 25 94 Non-Rebreather 15.0 100 01/07/17 23:50 97.3 113 20 138/72 95 Non-Rebreather 01/07/17 23:10 Non-Rebreather 15.0 01/07/17 23:10 Non-Rebreather 15.0 01/07/17 20:44 104 25 93 Non-Rebreather 15.0 100 01/07/17 20:37 74 25 Non-Rebreather 15.0 100 01/07/17 20:36 74 25 93 Non-Rebreather 15.0 100 01/07/17 19:34 97.5 103 20 130/81 99 Non-Rebreather 01/07/17 15:00 Non-Rebreather 15.0 100 01/07/17 15:00 Non-Rebreather 15.0 100 01/07/17 12:22 112 28 94 Non-Rebreather 15.0 100 01/07/17 12:10 89 26 94 Non-Rebreather 15.0 100 01/07/17 12:00 97.5 111 20 126/59 96 Venturi Mask 15.0 Laboratory Tests 01/07/17 11:55: Prothrombin Time 10.7, Prothromb Time International Ratio 1.0, Activated Partial Thromboplast Time 34H, Sodium Level 128L, Potassium Level 4.9, Chloride Level 95L, Carbon Dioxide Level 24, Anion Gap 9, Blood Urea Nitrogen 43H, Creatinine 1.1, Estimat Glomerular Filtration Rate , Glucose Level 209H, Calcium Level 9.0 01/07/17 18:20: Body Fluid Source Thoracentesis, Body Fluid Volume 24, Body Fluid Appearance Hazy, Body Fluid pH 8.0, Body Fluid RBC 5280, Body Fluid Total Nucleated Cells 1120, Body Fluid Polynuclear WBCs (%) 18, Body Fluid Mononuclear WBCs (%) 82, Body Fluid Mesothelial Cells (%) 0, Body Fluid Total Protein [Pending], Body Fluid Lactate Dehydrogenase [Pending] 01/08/17 00:45: Urine Osmolality 515H, Urine Random Sodium < 10L 01/08/17 09:21: Sodium Level [Pending], Potassium Level [Pending], Chloride Level [Pending], Carbon Dioxide Level [Pending], Blood Urea Nitrogen [Pending], Creatinine [ Pending], Estimat Glomerular Filtration Rate [Pending], Glucose Level [Pending] , Calcium Level [Pending], White Blood Count 18.5H, Red Blood Count 3.55L, Hemoglobin 11.5L, Hematocrit 35.2L, Mean Corpuscular Volume 99, Mean Corpuscular Hemoglobin 32.3H, Mean Corpuscular Hemoglobin Concent 32.6, Red Cell Distribution Width 11.3L, Platelet Count 371, Mean Platelet Volume 6.9, Neutrophils (%) (Auto) , Lymphocytes (%) (Auto) , Monocytes (%) (Auto) , Eosinophils (%) (Auto) , Basophils (%) (Auto) , Neutrophils % (Manual) [Pending] , Lymphocytes % (Manual) [Pending], Platelet Estimate [Pending], Platelet Morphology [Pending] Height (Feet): 5 Height (Inches): 11.00 Weight (Pounds): 230 General Appearance: WD/WN, no apparent distress EENT: PERRL/EOMI, normal ENT inspection Neck: non-tender Cardiovascular: normal peripheral pulses, normal rate Respiratory/Chest: decreased breath sounds Abdomen: normal bowel sounds, non tender Extremities: normal range of motion, non-tender Neurologic: cigarette catcher II-XII grossly normal JULY FORD Jan 08, 2017 10:35
[2017-01-08 10:48] LABS: BAND NEUTROPHILS % (MANUAL) 0 % (0-8); BASOPHILS % (MANUAL) 0 % (0-2); EOSINOPHILS % (MANUAL) 0 % (0-3); LYMPHOCYTES % (MANUAL) 4 % (20-45); NEUTROPHILS % (MANUAL) 92 % (45-75); PLATELET ESTIMATE ADEQUATE; PLATELET MORPHOLOGY NORMAL; TOTAL CELLS COUNTED 100
[2017-01-08 12:00] VITALS: BP 107/69
[2017-01-08 15:37] VITALS: BP 134/81
--- NOTE | 2017-01-08 17:43 | Pulmonology Progress Note ---
Assessment/Plan Assessment/Plan 1. Pneumonia with right lung atelectasis. 2. Dementia. 3. Hypertension. 4. Prostate enlargement. 5. Severe hyponatremia. 6. Peripheral vascular disease. 7. Major depression, recurrent, with moderate behavioral disturbance. 8. Hyperlipidemia. 9. right effusion, lymphocytic predominant sp thoracentesis, cell counts and chemistries pending ordered thoracentsis for repeat tuesday as still with large effusion lytes per nephrology cxr after thoracentsis tuesday FU cultures cont abx Subjective ROS Limited/Unobtainable: Yes Allergies: Coded Allergies: No Known Allergies (Verified , 05/15/09) Subjective sp thoracentsis 1 L yesterday cxr with increased effusion as of today pt remains on facemask for hypoxemia very [place] and confused no reports of cp nv or bleeding Objective Last 24 Hour Vital Signs Date Time Temp Pulse Resp B/P (MAP) Pulse Ox O2 Delivery O2 Flow Rate FiO2 01/08/17 16:10 123 24 93 Non-Rebreather 15.0 100 01/08/17 15:45 125 22 94 Non-Rebreather 15.0 100 01/08/17 15:37 97.5 106 22 134/81 95 Venturi Mask 15.0 01/08/17 12:00 97.7 114 19 107/69 96 Venturi Mask 15.0 01/08/17 11:54 101 22 94 Non-Rebreather 15.0 100 01/08/17 11:44 104 18 94 Non-Rebreather 15.0 100 01/08/17 09:13 94 132/83 01/08/17 09:12 94 132/83 01/08/17 09:00 97.3 113 21 135/84 100 Venturi Mask 15.0 01/08/17 08:31 82 20 98 Non-Rebreather 15.0 100 01/08/17 08:22 84 20 97 Non-Rebreather 15.0 100 01/08/17 08:22 84 20 Non-Rebreather 15.0 100 01/08/17 03:51 96.6 94 20 132/83 98 Non-Rebreather 01/08/17 03:29 90 20 93 Non-Rebreather 15.0 100 01/08/17 03:20 88 25 94 Non-Rebreather 15.0 100 01/07/17 23:50 97.3 113 20 138/72 95 Non-Rebreather 01/07/17 23:10 Non-Rebreather 15.0 01/07/17 23:10 Non-Rebreather 15.0 01/07/17 20:44 104 25 93 Non-Rebreather 15.0 100 01/07/17 20:37 74 25 Non-Rebreather 15.0 100 01/07/17 20:36 74 25 93 Non-Rebreather 15.0 100 01/07/17 19:34 97.5 103 20 130/81 99 Non-Rebreather Intake and Output 01/08/17 01/09/17 19:00 07:00 Intake Total 120 ml Balance 120 ml Intake Oral 120 ml # Bowel Movements 1 General Appearance: WD/WN HEENT: atraumatic, anicteric Respiratory/Chest: crackles/rales Cardiovascular: normal rate, regular rhythm Abdomen: soft, non tender, no organomegaly Extremities: no cyanosis, other - edema Neurologic/Psychiatric: alert, disoriented Microbiology Date/Time Source Procedure Growth Status 01/07/17 18:20 Thoracic Fluid Gram Stain - Final Resulted 01/07/17 18:20 Thoracic Fluid Body Fluid Culture - Preliminary NO GROWTH Resulted 01/05/17 19:20 Nasal Nares MRSA Culture - Final Complete 01/05/17 19:20 Rectum VRE Culture - Final NO VANCOMYCIN RESISTANT ENTEROCOCCUS ... Complete Laboratory Tests 01/07/17 18:20: Body Fluid Source Thoracentesis, Body Fluid Volume 24, Body Fluid Appearance Hazy, Body Fluid pH 8.0, Body Fluid RBC 5280, Body Fluid Total Nucleated Cells 1120, Body Fluid Polynuclear WBCs (%) 18, Body Fluid Mononuclear WBCs (%) 82, Body Fluid Mesothelial Cells (%) 0, Body Fluid Total Protein 4.5, Body Fluid Lactate Dehydrogenase [Pending] 01/08/17 00:45: Urine Osmolality 515H, Urine Random Sodium < 10L 01/08/17 09:21: White Blood Count 18.5H, Red Blood Count 3.55L, Hemoglobin 11.5L, Hematocrit 35.2L, Mean Corpuscular Volume 99, Mean Corpuscular Hemoglobin 32.3H, Mean Corpuscular Hemoglobin Concent 32.6, Red Cell Distribution Width 11.3L, Platelet Count 371, Mean Platelet Volume 6.9, Neutrophils (%) (Auto) , Lymphocytes (%) (Auto) , Monocytes (%) (Auto) , Eosinophils (%) (Auto) , Basophils (%) (Auto) , Differential Total Cells Counted 100, Neutrophils % ( Manual) 92H, Lymphocytes % (Manual) 4L, Monocytes % (Manual) 4, Eosinophils % ( Manual) 0, Basophils % (Manual) 0, Band Neutrophils 0, Platelet Estimate Adequate, Platelet Morphology Normal, Sodium Level 127L, Potassium Level 4.3, Chloride Level 96L, Carbon Dioxide Level 26, Anion Gap 5, Blood Urea Nitrogen 45H, Creatinine 1.0, Estimat Glomerular Filtration Rate , Glucose Level 214H, Calcium Level 9.1 Current Medications Medications (Trade) Dose Ordered Sig/Trini Route PRN Reason Start Time Stop Time Status Last Admin Dose Admin Acetaminophen (Tylenol) 650 mg Q4H PRN ORAL Mild Pain (Pain Scale 1-3) 01/05/17 18:00 02/04/17 17:59 Albuterol/ Ipratropium (DuoNeb 0.5-3(2.5)mg/3ml) 3 ml Q4HRT HHN 01/05/17 19:00 01/10/17 18:59 01/08/17 15:45 Amlodipine Besylate (Norvasc) 10 mg DAILY ORAL 01/06/17 14:30 02/05/17 14:29 01/08/17 09:12 Aspirin (ASA) 325 mg DAILY ORAL 01/06/17 14:30 02/05/17 14:29 01/08/17 09:12 Atenolol (Tenormin) 50 mg DAILY ORAL 01/06/17 14:30 02/05/17 14:29 01/08/17 09:13 Chlorhexidine Gluconate (Erica-Hex 2%) 1 applic DAILY@2000 TOPIC 01/07/17 20:00 02/06/17 19:59 Docusate Sodium (Colace) 250 mg BID ORAL 01/06/17 18:00 02/05/17 17:59 01/08/17 09:13 Finasteride (Proscar) 5 mg DAILY ORAL 01/07/17 09:00 02/06/17 08:59 01/08/17 09:12 Heparin Sodium/ Sodium Chloride (Heparin 2000 units/Ns 1000ml premix) 2,000 unit ONCE PRN INJ PICC PLACEMENT 01/07/17 17:00 01/08/17 23:59 Lidocaine HCl (Xylocaine 1% 30ml) 30 ml ONCE PRN INJ PICC PLACEMENT 01/07/17 17:00 01/08/17 23:59 Lorazepam (Ativan) 1 mg Q4H PRN ORAL For Anxiety 01/05/17 18:00 01/12/17 17:59 01/06/17 02:01 Multivitamins (Multivitamins) 1 tab DAILY ORAL 01/07/17 09:00 02/06/17 08:59 01/08/17 09:13 Oxybutynin Chloride (Ditropan) 5 mg DAILY ORAL 01/07/17 09:00 02/06/17 08:59 01/08/17 09:12 Piperacillin Sod/ Tazobactam Sod 4.5 gm/Sodium Chloride 110 ml @ 27.5 mls/hr EVERY 8 HOURS IV 01/05/17 22:00 01/12/17 21:59 01/08/17 14:17 Pravastatin Sodium (Pravachol) 40 mg BEDTIME ORAL 01/06/17 21:00 02/05/17 20:59 01/07/17 22:03 Sodium Chloride 1,000 ml @ 100 mls/hr Q10H IVLG 01/05/17 18:30 02/04/17 18:29 01/08/17 14:26 Tamsulosin HCl (Flomax) 0.4 mg BEDTIME ORAL 01/06/17 21:00 02/05/17 20:59 01/07/17 22:04 Trazodone HCl (Desyrel) 150 mg BEDTIME ORAL 01/06/17 21:00 02/05/17 20:59 01/07/17 22:04 Vancomycin HCl (Vanco rx to dose) 1 ea DAILY PRN MISC PER RXPROTOCOL 01/05/17 18:30 02/04/17 18:29 Vancomycin HCl/ Dextrose 250 ml @ 125 mls/hr Q24H IVPB 01/05/17 20:00 01/10/17 19:59 01/06/17 21:47 Vitamin D (Vitamin D) 1,000 intlu DAILY ORAL 01/07/17 09:00 02/06/17 08:59 01/08/17 09:13 ROSA KWONG 14, 2017 17:43
[2017-01-08] MEDS: Vancomycin 1.5 GM/D5W 250ML IVPB SCH (19:40)
[2017-01-08] MEDS: Dyna-Hex 2% Top Sol 2oz TOPIC SCH (20:00)
[2017-01-08] MEDS: TraZODone 100mg tab ORAL SCH (20:14)
[2017-01-08] MEDS: Tamsulosin 0.4mg cap ORAL SCH (20:14)
[2017-01-09] VITALS: BP 130/73
[2017-01-09] MEDS: Albuterol/Ipratropium 3ml neb HHN SCH ×6 (03:24→23:30)
[2017-01-09 04:50] VITALS: BP 155/88
[2017-01-09] MEDS: Piperacillin/Tazobactam 4.5 GM in NS 110 ML IV SCH ×3 (05:18→21:41)
--- NOTE | 2017-01-09 06:59 | Pulmonology Progress Note ---
Assessment/Plan Assessment/Plan 1. Pneumonia with right lung atelectasis. 2. Dementia. 3. Hypertension. 4. Prostate enlargement. 5. Severe hyponatremia. 6. Peripheral vascular disease. 7. Major depression, recurrent, with moderate behavioral disturbance. 8. Hyperlipidemia. 9. right effusion, lymphocytic predominant sp thoracentesis, cell counts and chemistries pending ordered repeat thoracentesis for repeat Tuesday as still with large effusion lytes per nephrology cxr after thoracentesis Tuesday FU cultures cont abx titrate o2 high risk of aspiration Subjective Allergies: Coded Allergies: No Known Allergies (Verified , 05/15/09) Subjective very tribal and confused this am sp thoracentesis 1 L tuesday pt remains on face mask for hypoxemia very tribal and confused no reports of cp nv or bleeding Objective Last 24 Hour Vital Signs Date Time Temp Pulse Resp B/P (MAP) Pulse Ox O2 Delivery O2 Flow Rate FiO2 01/09/17 04:50 97.7 126 20 155/88 99 Simple Mask 01/09/17 03:32 101 20 96 Non-Rebreather 15.0 100 01/09/17 03:24 105 20 95 Non-Rebreather 15.0 100 01/09/17 00:00 96.9 100 20 130/73 96 Nasal Cannula 2.0 01/08/17 23:41 96 20 95 Non-Rebreather 15.0 100 01/08/17 23:32 96 20 95 Non-Rebreather 15.0 100 01/08/17 19:35 118 20 93 Non-Rebreather 15.0 100 01/08/17 19:27 113 20 Non-Rebreather 15.0 100 01/08/17 19:27 113 20 93 Non-Rebreather 15.0 100 01/08/17 16:10 123 24 93 Non-Rebreather 15.0 100 01/08/17 15:45 125 22 94 Non-Rebreather 15.0 100 01/08/17 15:37 97.5 106 22 134/81 95 Venturi Mask 15.0 01/08/17 12:00 97.7 114 19 107/69 96 Venturi Mask 15.0 01/08/17 11:54 101 22 94 Non-Rebreather 15.0 100 01/08/17 11:44 104 18 94 Non-Rebreather 15.0 100 01/08/17 09:13 94 132/83 01/08/17 09:12 94 132/83 01/08/17 09:00 97.3 113 21 135/84 100 Venturi Mask 15.0 01/08/17 08:31 82 20 98 Non-Rebreather 15.0 100 01/08/17 08:22 84 20 97 Non-Rebreather 15.0 100 01/08/17 08:22 84 20 Non-Rebreather 15.0 100 General Appearance: WD/WN Respiratory/Chest: crackles/rales, rhonchi Cardiovascular: normal rate, regular rhythm Abdomen: no organomegaly, non distended Extremities: other - edema Skin: lesions Neurologic/Psychiatric: abnormal gait, disoriented Microbiology Date/Time Source Procedure Growth Status 01/07/17 18:20 Thoracic Fluid Gram Stain - Final Resulted 01/07/17 18:20 Thoracic Fluid Body Fluid Culture - Preliminary NO GROWTH Resulted Laboratory Tests 01/08/17 09:21: White Blood Count 18.5H, Red Blood Count 3.55L, Hemoglobin 11.5L, Hematocrit 35.2L, Mean Corpuscular Volume 99, Mean Corpuscular Hemoglobin 32.3H, Mean Corpuscular Hemoglobin Concent 32.6, Red Cell Distribution Width 11.3L, Platelet Count 371, Mean Platelet Volume 6.9, Neutrophils (%) (Auto) , Lymphocytes (%) (Auto) , Monocytes (%) (Auto) , Eosinophils (%) (Auto) , Basophils (%) (Auto) , Differential Total Cells Counted 100, Neutrophils % ( Manual) 92H, Lymphocytes % (Manual) 4L, Monocytes % (Manual) 4, Eosinophils % ( Manual) 0, Basophils % (Manual) 0, Band Neutrophils 0, Platelet Estimate Adequate, Platelet Morphology Normal, Sodium Level 127L, Potassium Level 4.3, Chloride Level 96L, Carbon Dioxide Level 26, Anion Gap 5, Blood Urea Nitrogen 45H, Creatinine 1.0, Estimat Glomerular Filtration Rate , Glucose Level 214H, Calcium Level 9.1 01/08/17 18:40: Vancomycin Level Trough 7.6 Current Medications Medications (Trade) Dose Ordered Sig/Trini Route PRN Reason Start Time Stop Time Status Last Admin Dose Admin Acetaminophen (Tylenol) 650 mg Q4H PRN ORAL Mild Pain (Pain Scale 1-3) 01/05/17 18:00 02/04/17 17:59 Albuterol/ Ipratropium (DuoNeb 0.5-3(2.5)mg/3ml) 3 ml Q4HRT HHN 01/05/17 19:00 01/10/17 18:59 01/09/17 03:24 Amlodipine Besylate (Norvasc) 10 mg DAILY ORAL 01/06/17 14:30 02/05/17 14:29 01/08/17 09:12 Aspirin (ASA) 325 mg DAILY ORAL 01/06/17 14:30 02/05/17 14:29 01/08/17 09:12 Atenolol (Tenormin) 50 mg DAILY ORAL 01/06/17 14:30 02/05/17 14:29 01/08/17 09:13 Chlorhexidine Gluconate (Erica-Hex 2%) 1 applic DAILY@2000 TOPIC 01/07/17 20:00 02/06/17 19:59 Docusate Sodium (Colace) 250 mg BID ORAL 01/06/17 18:00 02/05/17 17:59 01/08/17 18:04 Finasteride (Proscar) 5 mg DAILY ORAL 01/07/17 09:00 02/06/17 08:59 01/08/17 09:12 Lorazepam (Ativan) 1 mg Q4H PRN ORAL For Anxiety 01/05/17 18:00 01/12/17 17:59 01/06/17 02:01 Multivitamins (Multivitamins) 1 tab DAILY ORAL 01/07/17 09:00 02/06/17 08:59 01/08/17 09:13 Oxybutynin Chloride (Ditropan) 5 mg DAILY ORAL 01/07/17 09:00 02/06/17 08:59 01/08/17 09:12 Piperacillin Sod/ Tazobactam Sod 4.5 gm/Sodium Chloride 110 ml @ 27.5 mls/hr EVERY 8 HOURS IV 01/05/17 22:00 01/12/17 21:59 01/09/17 05:18 Pravastatin Sodium (Pravachol) 40 mg BEDTIME ORAL 01/06/17 21:00 02/05/17 20:59 01/08/17 20:14 Sodium Chloride 1,000 ml @ 100 mls/hr Q10H IVLG 01/05/17 18:30 02/04/17 18:29 01/09/17 00:01 Tamsulosin HCl (Flomax) 0.4 mg BEDTIME ORAL 01/06/17 21:00 02/05/17 20:59 01/08/17 20:14 Trazodone HCl (Desyrel) 150 mg BEDTIME ORAL 01/06/17 21:00 02/05/17 20:59 01/08/17 20:14 Vancomycin HCl (Vanco rx to dose) 1 ea DAILY PRN MISC PER RXPROTOCOL 01/05/17 18:30 02/04/17 18:29 Vancomycin HCl/ Dextrose 250 ml @ 125 mls/hr Q24H IVPB 01/05/17 20:00 01/12/17 21:00 01/08/17 19:40 Vitamin D (Vitamin D) 1,000 intlu DAILY ORAL 01/07/17 09:00 02/06/17 08:59 01/08/17 09:13 ROSA KWONG DO Jan 09, 2017 06:59
[2017-01-09] MEDS ORDERED: Vancomycin 1gm/D5W 275ml IVPB SCH ×2 (08:00)
[2017-01-09 08:26] VITALS: BP 134/69
[2017-01-09 08:57] LABS: MEAN CORPUSCULAR HEMOGLOBIN 33.5 PG (27.0-31.0); MEAN CORPUSCULAR HGB CONC 33.8 G/DL (32.0-36.0); MEAN CORPUSCULAR VOLUME 99 FL (80-99); MEAN PLATELET VOLUME 6.4 FL (6.5-10.1); PLATELET COUNT 372 K/UL (150-450); RED BLOOD COUNT 3.16 M/UL (4.70-6.10); RED CELL DISTRIBUTION WIDTH 11.6 % (11.6-14.8); WHITE BLOOD COUNT 17.6 K/UL (4.8-10.8)
[2017-01-09] MEDS: Docusate 250mg cap ORAL SCH ×2 (09:00→17:36)
[2017-01-09] MEDS: Oxybutynin 5mg tab ORAL SCH (09:22)
[2017-01-09] MEDS: Vitamin D 1000 IU Tab ORAL SCH (09:22)
[2017-01-09 09:31] LABS: CALCIUM 8.3 MG/DL (8.5-10.1); CHLORIDE 105 MMOL/L (98-107); CREATININE 0.9 MG/DL (0.55-1.30); SODIUM 142 MMOL/L (136-145)
[2017-01-09 09:55] LABS: CARBON DIOXIDE 24 MMOL/L (21-32)
[2017-01-09 10:09] LABS: BAND NEUTROPHILS % (MANUAL) 0 % (0-8); BASOPHILS % (MANUAL) 0 % (0-2); EOSINOPHILS % (MANUAL) 0 % (0-3); HYPOCHROMASIA 1+; LYMPHOCYTES % (MANUAL) 7 % (20-45); NEUTROPHILS % (MANUAL) 82 % (45-75); PLATELET ESTIMATE ADEQUATE; PLATELET MORPHOLOGY NORMAL; TOTAL CELLS COUNTED 100
[2017-01-09] MEDS ORDERED: Tubing IV Secondary IV ONE (10:23)
--- NOTE | 2017-01-09 10:45 | Nephrology Progress Note ---
Assessment/Plan Assessment 1) Hyponatremia improved with IV fluid, this is due to prerenal state 2) Sepsis with leukocytosis 3)R sided recurrent pleural effusion of ? etiology Plan: Awaiting Pleural fluid results DISContinue IVF Subjective Subjective He is confused, the serum NA is 142 now, no increasing sob, pleural fluid protein is 4.5 Objective Objective Last 24 Hour Vital Signs Date Time Temp Pulse Resp B/P (MAP) Pulse Ox O2 Delivery O2 Flow Rate FiO2 01/09/17 09:22 70 134/69 01/09/17 09:22 70 134/69 01/09/17 08:26 98.6 70 20 134/69 100 Non-Rebreather 15.0 01/09/17 07:29 103 20 97 Non-Rebreather 15.0 100 01/09/17 07:21 99 20 95 Non-Rebreather 15.0 100 01/09/17 04:50 97.7 126 20 155/88 99 Simple Mask 01/09/17 03:32 101 20 96 Non-Rebreather 15.0 100 01/09/17 03:24 105 20 95 Non-Rebreather 15.0 100 01/09/17 00:00 96.9 100 20 130/73 96 Nasal Cannula 2.0 01/08/17 23:41 96 20 95 Non-Rebreather 15.0 100 01/08/17 23:32 96 20 95 Non-Rebreather 15.0 100 01/08/17 19:35 118 20 93 Non-Rebreather 15.0 100 01/08/17 19:27 113 20 Non-Rebreather 15.0 100 01/08/17 19:27 113 20 93 Non-Rebreather 15.0 100 01/08/17 16:10 123 24 93 Non-Rebreather 15.0 100 01/08/17 15:45 125 22 94 Non-Rebreather 15.0 100 01/08/17 15:37 97.5 106 22 134/81 95 Venturi Mask 15.0 01/08/17 12:00 97.7 114 19 107/69 96 Venturi Mask 15.0 01/08/17 11:54 101 22 94 Non-Rebreather 15.0 100 01/08/17 11:44 104 18 94 Non-Rebreather 15.0 100 Intake and Output 01/09/17 01/10/17 19:00 07:00 Intake Total 227.5 ml Balance 227.5 ml Intake Oral 200 ml IV Total 27.5 ml Laboratory Tests 01/08/17 18:40: Vancomycin Level Trough 7.6 01/09/17 07:10: White Blood Count 17.6H, Red Blood Count 3.16L, Hemoglobin 10.6L, Hematocrit 31.3L, Mean Corpuscular Volume 99, Mean Corpuscular Hemoglobin 33.5H, Mean Corpuscular Hemoglobin Concent 33.8, Red Cell Distribution Width 11.6, Platelet Count 372, Mean Platelet Volume 6.4L, Neutrophils (%) (Auto) , Lymphocytes (%) ( Auto) , Monocytes (%) (Auto) , Eosinophils (%) (Auto) , Basophils (%) (Auto) , Differential Total Cells Counted 100, Neutrophils % (Manual) 82H, Lymphocytes % (Manual) 7L, Monocytes % (Manual) 11H, Eosinophils % (Manual) 0, Basophils % ( Manual) 0, Band Neutrophils 0, Platelet Estimate Adequate, Platelet Morphology Normal, Hypochromasia 1+, Sodium Level 142#, Potassium Level 4.0, Chloride Level 105, Carbon Dioxide Level 24, Blood Urea Nitrogen 29H, Creatinine 0.9, Estimat Glomerular Filtration Rate , Glucose Level 174H, Calcium Level 8.3L Height (Feet): 5 Height (Inches): 11.00 Weight (Pounds): 230 General Appearance: WD/WN, no apparent distress EENT: PERRL/EOMI Neck: non-tender Cardiovascular: normal peripheral pulses, normal rate, regular rhythm Respiratory/Chest: decreased breath sounds Abdomen: normal bowel sounds, non tender 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
[2017-01-09 12:12] VITALS: BP 132/71
[2017-01-09 15:58] VITALS: BP 139/92
[2017-01-09 20:00] VITALS: BP 128/91
[2017-01-09] MEDS: Dyna-Hex 2% Top Sol 2oz TOPIC SCH (20:00)
[2017-01-09] MEDS: Vancomycin 1.5 GM/D5W 250ML IVPB SCH (20:06)
[2017-01-09] MEDS: LORazepam 1mg tab ORAL PRN (20:07)
[2017-01-09] MEDS: Tamsulosin 0.4mg cap ORAL SCH (20:07)
[2017-01-09] MEDS: TraZODone 100mg tab ORAL SCH (20:07)
[2017-01-10] VITALS: BP 126/89
[2017-01-10 03:27] VITALS: BP 146/78
[2017-01-10] MEDS: Albuterol/Ipratropium 3ml neb HHN SCH ×4 (03:48→15:00)
[2017-01-10] MEDS: Piperacillin/Tazobactam 4.5 GM in NS 110 ML IV SCH ×3 (05:32→22:02)
[2017-01-10 07:13] LABS: MEAN CORPUSCULAR HEMOGLOBIN 33.1 PG (27.0-31.0); MEAN CORPUSCULAR HGB CONC 33.3 G/DL (32.0-36.0); MEAN CORPUSCULAR VOLUME 99 FL (80-99); MEAN PLATELET VOLUME 6.5 FL (6.5-10.1); PLATELET COUNT 374 K/UL (150-450); RED BLOOD COUNT 3.19 M/UL (4.70-6.10); RED CELL DISTRIBUTION WIDTH 11.8 % (11.6-14.8); WHITE BLOOD COUNT 19.1 K/UL (4.8-10.8)
[2017-01-10 07:39] LABS: ANION GAP 6 (5-15); CALCIUM 9.1 MG/DL (8.5-10.1); CARBON DIOXIDE 26 MMOL/L (21-32); CHLORIDE 106 MMOL/L (98-107); CREATININE 0.9 MG/DL (0.55-1.30); POTASSIUM 4.5 MMOL/L (3.5-5.1); SODIUM 138 MMOL/L (136-145)
[2017-01-10 07:49] LABS: BAND NEUTROPHILS % (MANUAL) 0 % (0-8); BASOPHILS % (MANUAL) 0 % (0-2); EOSINOPHILS % (MANUAL) 0 % (0-3); LYMPHOCYTES % (MANUAL) 4 % (20-45); NEUTROPHILS % (MANUAL) 88 % (45-75); PLATELET ESTIMATE ADEQUATE; PLATELET MORPHOLOGY NORMAL; TOTAL CELLS COUNTED 100
[2017-01-10 08:00] VITALS: BP 140/78
[2017-01-10] MEDS: Vitamin D 1000 IU Tab ORAL SCH (09:14)
[2017-01-10] MEDS: Docusate 250mg cap ORAL SCH ×2 (09:14→19:00)
[2017-01-10] MEDS: Oxybutynin 5mg tab ORAL SCH (09:15)
--- NOTE | 2017-01-10 10:46 | Diagnostic Imaging Report ---
Indication: COPD, shortness of breath Technique: One view of the chest Comparison: 01/08/2017 Findings: Again demonstrated is a massive right pleural effusion. There is new or increased small to moderate pleural fluid at the left lung base. Interstitial edema persists. Impression: New or increased small to moderate left pleural effusion Other stable findings, as described, over 2 days
[2017-01-10 12:00] VITALS: BP 123/83
--- NOTE | 2017-01-10 12:06 | Pulmonology Progress Note ---
Assessment/Plan Assessment/Plan 1. Pneumonia with right lung atelectasis. 2. Dementia. 3. Hypertension. 4. Prostate enlargement. 5. Severe hyponatremia. 6. Peripheral vascular disease. 7. Major depression, recurrent, with moderate behavioral disturbance. 8. Hyperlipidemia. 9. right effusion, lymphocytic predominant 10. left effusion await repeat thoracentesis as still with large effusion lytes per nephrology cxr after thoracentesis today FU cultures cont abx titrate o2 high risk of aspiration Subjective Interval Events: CXR shows moderate pleural effusion Constitutional: Reports: no symptoms HEENT: Repors: no symptoms Respiratory: Reports: productive cough, shortness of breath Cardiovascular: Reports: no symptoms Gastrointestinal/Abdominal: Reports: no symptoms Genitourinary: Reports: no symptoms Allergies: Coded Allergies: No Known Allergies (Verified , 05/15/09) Objective Last 24 Hour Vital Signs Date Time Temp Pulse Resp B/P (MAP) Pulse Ox O2 Delivery O2 Flow Rate FiO2 01/10/17 10:42 Non-Rebreather 01/10/17 10:42 Non-Rebreather 01/10/17 09:15 109 140/78 01/10/17 09:15 109 140/78 01/10/17 08:00 97.0 109 20 140/78 98 Non-Rebreather 01/10/17 07:28 72 20 98 Non-Rebreather 15.0 100 01/10/17 07:20 100 01/10/17 07:20 65 20 98 Non-Rebreather 12.0 100 01/10/17 04:04 63 20 98 Non-Rebreather 15.0 100 01/10/17 03:50 100 01/10/17 03:48 67 20 97 Non-Rebreather 15.0 100 01/10/17 03:27 96.3 20 146/78 100 Non-Rebreather 01/10/17 00:00 97.4 81 20 126/89 98 Venturi Mask 01/09/17 23:43 69 20 92 Non-Rebreather 15.0 100 01/09/17 23:34 100 01/09/17 23:30 69 20 98 Non-Rebreather 15.0 100 01/09/17 20:00 97.7 90 20 128/91 97 Venturi Mask 01/09/17 19:56 113 22 92 Non-Rebreather 15.0 100 01/09/17 19:43 62 20 98 Non-Rebreather 12.0 100 01/09/17 19:43 100 01/09/17 15:58 97.5 69 21 139/92 99 Venturi Mask 15.0 01/09/17 15:43 86 18 96 Non-Rebreather 15.0 100 01/09/17 15:27 68 18 99 Non-Rebreather 15.0 100 01/09/17 12:12 98.1 71 20 132/71 98 Non-Rebreather 15.0 General Appearance: no acute distress HEENT: normocephalic Respiratory/Chest: chest wall non-tender, decreased breath sounds Cardiovascular: normal peripheral pulses, normal rate Abdomen: normal bowel sounds, soft, non tender Microbiology Date/Time Source Procedure Growth Status 01/07/17 18:20 Thoracic Fluid Gram Stain - Final Resulted 01/07/17 18:20 Thoracic Fluid Body Fluid Culture - Preliminary NO GROWTH AFTER 72 HOURS Resulted Laboratory Tests 01/10/17 05:35: White Blood Count 19.1H, Red Blood Count 3.19L, Hemoglobin 10.6L, Hematocrit 31.7L, Mean Corpuscular Volume 99, Mean Corpuscular Hemoglobin 33.1H, Mean Corpuscular Hemoglobin Concent 33.3, Red Cell Distribution Width 11.8, Platelet Count 374, Mean Platelet Volume 6.5, Neutrophils (%) (Auto) , Lymphocytes (%) ( Auto) , Monocytes (%) (Auto) , Eosinophils (%) (Auto) , Basophils (%) (Auto) , Differential Total Cells Counted 100, Neutrophils % (Manual) 88H, Lymphocytes % (Manual) 4L, Monocytes % (Manual) 8, Eosinophils % (Manual) 0, Basophils % ( Manual) 0, Band Neutrophils 0, Platelet Estimate Adequate, Platelet Morphology Normal, Sodium Level 138, Potassium Level 4.5, Chloride Level 106, Carbon Dioxide Level 26, Anion Gap 6, Blood Urea Nitrogen 29H, Creatinine 0.9, Estimat Glomerular Filtration Rate , Glucose Level 166H, Calcium Level 9.1 Current Medications Medications (Trade) Dose Ordered Sig/Trini Route PRN Reason Start Time Stop Time Status Last Admin Dose Admin Acetaminophen (Tylenol) 650 mg Q4H PRN ORAL Mild Pain (Pain Scale 1-3) 01/05/17 18:00 02/04/17 17:59 Albuterol/ Ipratropium (DuoNeb 0.5-3(2.5)mg/3ml) 3 ml Q4HRT HHN 01/05/17 19:00 01/10/17 18:59 01/10/17 07:20 Amlodipine Besylate (Norvasc) 10 mg DAILY ORAL 01/06/17 14:30 02/05/17 14:29 01/10/17 09:15 Aspirin (ASA) 325 mg DAILY ORAL 01/06/17 14:30 02/05/17 14:29 01/10/17 09:14 Atenolol (Tenormin) 50 mg DAILY ORAL 01/06/17 14:30 02/05/17 14:29 01/10/17 09:15 Chlorhexidine Gluconate (Erica-Hex 2%) 1 applic DAILY@2000 TOPIC 01/07/17 20:00 02/06/17 19:59 Docusate Sodium (Colace) 250 mg BID ORAL 01/06/17 18:00 02/05/17 17:59 01/10/17 09:14 Finasteride (Proscar) 5 mg DAILY ORAL 01/07/17 09:00 02/06/17 08:59 01/10/17 09:14 Lorazepam (Ativan) 1 mg Q4H PRN ORAL For Anxiety 01/05/17 18:00 01/12/17 17:59 01/09/17 20:07 Multivitamins (Multivitamins) 1 tab DAILY ORAL 01/07/17 09:00 02/06/17 08:59 01/10/17 09:14 Oxybutynin Chloride (Ditropan) 5 mg DAILY ORAL 01/07/17 09:00 02/06/17 08:59 01/10/17 09:15 Piperacillin Sod/ Tazobactam Sod 4.5 gm/Sodium Chloride 110 ml @ 27.5 mls/hr EVERY 8 HOURS IV 01/05/17 22:00 01/12/17 21:59 01/10/17 05:32 Pravastatin Sodium (Pravachol) 40 mg BEDTIME ORAL 01/06/17 21:00 02/05/17 20:59 01/09/17 20:07 Tamsulosin HCl (Flomax) 0.4 mg BEDTIME ORAL 01/06/17 21:00 02/05/17 20:59 01/09/17 20:07 Trazodone HCl (Desyrel) 150 mg BEDTIME ORAL 01/06/17 21:00 02/05/17 20:59 01/09/17 20:07 Vancomycin HCl (Vanco rx to dose) 1 ea DAILY PRN MISC PER RXPROTOCOL 01/05/17 18:30 02/04/17 18:29 Vancomycin HCl/ Dextrose 250 ml @ 125 mls/hr Q24H IVPB 01/05/17 20:00 01/12/17 21:00 01/09/17 20:06 Vitamin D (Vitamin D) 1,000 intlu DAILY ORAL 01/07/17 09:00 02/06/17 08:59 01/10/17 09:14 Jose Willson MD Jan 10, 2017 12:06
--- NOTE | 2017-01-10 12:28 | Nephrology Progress Note ---
Assessment/Plan Assessment 1) Hyponatremia improved with IV fluid, this is due to prerenal state 2) Sepsis with leukocytosis 3)R sided recurrent pleural effusion of exsudative type with lymphocytic differential, TB Vs sarcoid VS fungal VS lymphoma Plan: Will continue current measures >? need for bronchoscopy Subjective Subjective He is confused, the serum NA is 138 now, no increasing sob, Objective Objective Last 24 Hour Vital Signs Date Time Temp Pulse Resp B/P (MAP) Pulse Ox O2 Delivery O2 Flow Rate FiO2 01/10/17 10:42 Non-Rebreather 01/10/17 10:42 Non-Rebreather 01/10/17 09:15 109 140/78 01/10/17 09:15 109 140/78 01/10/17 08:00 97.0 109 20 140/78 98 Non-Rebreather 01/10/17 07:28 72 20 98 Non-Rebreather 15.0 100 01/10/17 07:20 100 01/10/17 07:20 65 20 98 Non-Rebreather 12.0 100 01/10/17 04:04 63 20 98 Non-Rebreather 15.0 100 01/10/17 03:50 100 01/10/17 03:48 67 20 97 Non-Rebreather 15.0 100 01/10/17 03:27 96.3 20 146/78 100 Non-Rebreather 01/10/17 00:00 97.4 81 20 126/89 98 Venturi Mask 01/09/17 23:43 69 20 92 Non-Rebreather 15.0 100 01/09/17 23:34 100 01/09/17 23:30 69 20 98 Non-Rebreather 15.0 100 01/09/17 20:00 97.7 90 20 128/91 97 Venturi Mask 01/09/17 19:56 113 22 92 Non-Rebreather 15.0 100 01/09/17 19:43 62 20 98 Non-Rebreather 12.0 100 01/09/17 19:43 100 01/09/17 15:58 97.5 69 21 139/92 99 Venturi Mask 15.0 01/09/17 15:43 86 18 96 Non-Rebreather 15.0 100 01/09/17 15:27 68 18 99 Non-Rebreather 15.0 100 Laboratory Tests 01/10/17 05:35: White Blood Count 19.1H, Red Blood Count 3.19L, Hemoglobin 10.6L, Hematocrit 31.7L, Mean Corpuscular Volume 99, Mean Corpuscular Hemoglobin 33.1H, Mean Corpuscular Hemoglobin Concent 33.3, Red Cell Distribution Width 11.8, Platelet Count 374, Mean Platelet Volume 6.5, Neutrophils (%) (Auto) , Lymphocytes (%) ( Auto) , Monocytes (%) (Auto) , Eosinophils (%) (Auto) , Basophils (%) (Auto) , Differential Total Cells Counted 100, Neutrophils % (Manual) 88H, Lymphocytes % (Manual) 4L, Monocytes % (Manual) 8, Eosinophils % (Manual) 0, Basophils % ( Manual) 0, Band Neutrophils 0, Platelet Estimate Adequate, Platelet Morphology Normal, Sodium Level 138, Potassium Level 4.5, Chloride Level 106, Carbon Dioxide Level 26, Anion Gap 6, Blood Urea Nitrogen 29H, Creatinine 0.9, Estimat Glomerular Filtration Rate , Glucose Level 166H, Calcium Level 9.1 Height (Feet): 5 Height (Inches): 11.00 Weight (Pounds): 230 General Appearance: no apparent distress, alert, confused EENT: PERRL/EOMI, normal ENT inspection Neck: non-tender, normal alignment Cardiovascular: normal rate, regular rhythm Respiratory/Chest: decreased breath sounds, rhonchi - bilaterally Abdomen: normal bowel sounds, non tender, soft Extremities: normal range of motion 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
[2017-01-10 16:00] VITALS: BP 137/76
--- NOTE | 2017-01-10 18:18 | Diagnostic Imaging Report ---
Indication: Status post thoracentesis Technique: One view of the chest Comparison: 8 hours earlier Findings: Interim decrease regular opacity, consistent with decreased pleural fluid related to recent thoracentesis. There is still persistent opacity at the right lung base, likely reflecting atelectatic or consolidated lung. Interstitial congestive changes persists. Heart remains enlarged. No pneumothorax Impression: Decreased right pleural effusion, post thoracentesis. No radiographically evident complication Other findings as described
[2017-01-10] MEDS: Dyna-Hex 2% Top Sol 2oz TOPIC SCH (20:00)
[2017-01-10] MEDS: Vancomycin 1.5 GM/D5W 250ML IVPB SCH (20:01)
[2017-01-10 20:05] VITALS: BP 116/77
[2017-01-10] MEDS: Tamsulosin 0.4mg cap ORAL SCH (20:45)
[2017-01-10] MEDS: TraZODone 100mg tab ORAL SCH (20:45)
[2017-01-10 21:54] LABS: APPEARANCE, BODY FLUID CLOUDY; BD FL SOURCE PLEURAL; BD FL VOLUME 24 mL
[2017-01-10 21:55] LABS: BODY FLUID NUCLEATED CELLS 577 /CUMM; BODY FLUID RBC 31200 /CUMM; POLYMORPHONUCLEAR WBC 15 %
[2017-01-10 21:56] LABS: COMMENT,BODY FLUID BLOODY; MONONUCLEAR WBC 85 %
[2017-01-11 00:06] VITALS: BP 138/72
[2017-01-11 03:58] VITALS: BP 139/82
[2017-01-11] MEDS: Piperacillin/Tazobactam 4.5 GM in NS 110 ML IV SCH ×3 (05:15→23:53)
[2017-01-11 08:26] VITALS: BP 128/82
[2017-01-11] MEDS: Docusate 250mg cap ORAL SCH ×2 (09:00→17:32)
[2017-01-11] MEDS: Oxybutynin 5mg tab ORAL SCH (09:14)
[2017-01-11] MEDS: Vitamin D 1000 IU Tab ORAL SCH (09:14)
--- NOTE | 2017-01-11 12:46 | Nephrology Progress Note ---
Assessment/Plan Problem List: (1) CHF exacerbation (2) Pneumonia (3) Hyponatremia Plan start iv lasix losartan, change atenolol to coreg Subjective ROS Limited/Unobtainable: Yes Objective Objective Last 24 Hour Vital Signs Date Time Temp Pulse Resp B/P (MAP) Pulse Ox O2 Delivery O2 Flow Rate FiO2 01/11/17 09:16 92 128/82 01/11/17 09:00 92 128/82 01/11/17 08:26 98.4 92 20 128/82 100 Non-Rebreather 15.0 01/11/17 07:46 Non-Rebreather 15.0 100 01/11/17 07:45 100 Non-Rebreather 15.0 100 01/11/17 03:58 97.8 119 19 139/82 98 Non-Rebreather 01/11/17 00:06 98.0 99 19 138/72 98 Non-Rebreather 01/10/17 20:05 96.7 99 19 116/77 98 Non-Rebreather 01/10/17 16:00 96.6 112 20 137/76 92 Non-Rebreather 01/10/17 15:06 Non-Rebreather 01/10/17 15:06 Non-Rebreather Laboratory Tests 01/10/17 15:30: Body Fluid Source [Pending], Body Fluid Volume [Pending], Body Fluid Appearance Cloudy, Body Fluid [place] [address], Body Fluid Total Nucleated Cells 577, Body Fluid Polynuclear WBCs (%) 15, Body Fluid Mononuclear WBCs (%) 85, Body Fluid Mesothelial Cells (%) 0, Body Fluid Glucose [Pending], Body Fluid Total Protein [Pending], Body Fluid Lactate Dehydrogenase [Pending], Body Fluid Comment Bloody Height (Feet): 5 Height (Inches): 11.00 Weight (Pounds): 230 General Appearance: mild distress EENT: PERRL/EOMI Neck: non-tender Cardiovascular: normal rate, regular rhythm Respiratory/Chest: rhonchi - bilaterally Abdomen: non tender, no organomegaly Extremities: moderate edema 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
[2017-01-11 14:16] VITALS: BP 138/75
[2017-01-11] MEDS: Losartan 50mg tab ORAL SCH ×2 (14:17→21:24)
[2017-01-11 14:18] LABS: PROTEIN, BODY FLUID 2.6 g/dL (.)
--- NOTE | 2017-01-11 14:25 | Diagnostic Imaging Report ---
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 The right upper extremity was prepped with alcohol. All elements of maximal sterile barrier technique were followed including usage of a cap, mask, sterile gown, sterile gloves, hand hygiene and a large sterile sheet. Sonographic evaluation of the upper extremity was performed demonstrating a patent and compressible basilic vein. Access was obtained under real-time ultrasound guidance and digital image was saved and archived. An .018 wire was introduced. Needle exchanged for a 5 Somali peel-away sheath. Measurements were obtained. A 5 Somali dual-lumen Power PICC line catheter was cut to 40 cm and introduced over the wire. Peel-away sheath and wire were removed.Catheter was secured to the skin using 2-0 Prolene suture. Both ports aspirate and flush easily. Fluoroscopic Images show distal tip in the superior vena cava. Total fluoroscopic time 0.7 minutes Impression: Successful placement of an upper extremity PICC line catheter
[2017-01-11 16:06] VITALS: BP 125/74
--- NOTE | 2017-01-11 18:13 | Pulmonology Progress Note ---
Assessment/Plan Assessment/Plan 1. Pneumonia with right lung atelectasis. 2. Dementia. 3. Hypertension. 4. Prostate enlargement. 5. Severe hyponatremia. 6. Peripheral vascular disease. 7. Major depression, recurrent, with moderate behavioral disturbance. 8. Hyperlipidemia. 9. right effusion, lymphocytic predominant 10. left effusion CXR better lytes per nephrology FU cultures cont abx titrate o2 high risk of aspiration Subjective Interval Events: None Constitutional: Reports: no symptoms HEENT: Repors: no symptoms Respiratory: Reports: shortness of breath Cardiovascular: Reports: no symptoms Gastrointestinal/Abdominal: Reports: no symptoms Allergies: Coded Allergies: No Known Allergies (Verified , 05/15/09) Objective Last 24 Hour Vital Signs Date Time Temp Pulse Resp B/P (MAP) Pulse Ox O2 Delivery O2 Flow Rate FiO2 01/11/17 16:06 97.8 90 22 125/74 100 Non-Rebreather 15.0 01/11/17 14:17 138/75 01/11/17 14:16 96.3 110 21 138/75 97 Non-Rebreather 15.0 01/11/17 09:16 92 128/82 01/11/17 09:00 92 128/82 01/11/17 08:26 98.4 92 20 128/82 100 Non-Rebreather 15.0 01/11/17 07:46 Non-Rebreather 15.0 100 01/11/17 07:45 100 Non-Rebreather 15.0 100 01/11/17 03:58 97.8 119 19 139/82 98 Non-Rebreather 01/11/17 00:06 98.0 99 19 138/72 98 Non-Rebreather 01/10/17 20:05 96.7 99 19 116/77 98 Non-Rebreather Intake and Output 01/11/17 01/12/17 18:59 06:59 Intake Total 175.0 ml Balance 175.0 ml Intake Oral 120 ml IV Total 55.0 ml # Voids 1 # Bowel Movements 1 General Appearance: no acute distress HEENT: normocephalic Respiratory/Chest: chest wall non-tender, decreased breath sounds Cardiovascular: normal peripheral pulses, tachycardia Abdomen: normal bowel sounds, soft, non tender Current Medications Medications (Trade) Dose Ordered Sig/Trini Route PRN Reason Start Time Stop Time Status Last Admin Dose Admin Acetaminophen (Tylenol) 650 mg Q4H PRN ORAL Mild Pain (Pain Scale 1-3) 01/05/17 18:00 02/04/17 17:59 Aspirin (ASA) 325 mg DAILY ORAL 01/06/17 14:30 02/05/17 14:29 01/10/17 09:14 Carvedilol (Coreg) 12.5 mg EVERY 12 HOURS ORAL 01/11/17 21:00 02/10/17 20:59 Chlorhexidine Gluconate (Erica-Hex 2%) 1 applic DAILY@2000 TOPIC 01/07/17 20:00 02/06/17 19:59 Docusate Sodium (Colace) 250 mg BID ORAL 01/06/17 18:00 02/05/17 17:59 01/10/17 19:00 Finasteride (Proscar) 5 mg DAILY ORAL 01/07/17 09:00 02/06/17 08:59 01/11/17 09:14 Furosemide (Lasix) 40 mg EVERY 8 HOURS IV 01/11/17 14:00 02/10/17 13:59 01/11/17 14:17 Lorazepam (Ativan) 1 mg Q4H PRN ORAL For Anxiety 01/05/17 18:00 01/12/17 17:59 01/09/17 20:07 Losartan Potassium (Cozaar) 50 mg EVERY 12 HOURS ORAL 01/11/17 13:00 02/10/17 12:59 01/11/17 14:17 Multivitamins (Multivitamins) 1 tab DAILY ORAL 01/07/17 09:00 02/06/17 08:59 01/11/17 09:14 Oxybutynin Chloride (Ditropan) 5 mg DAILY ORAL 01/07/17 09:00 02/06/17 08:59 01/11/17 09:14 Piperacillin Sod/ Tazobactam Sod 4.5 gm/Sodium Chloride 110 ml @ 27.5 mls/hr EVERY 8 HOURS IV 01/05/17 22:00 01/16/17 21:59 01/11/17 15:05 Pravastatin Sodium (Pravachol) 40 mg BEDTIME ORAL 01/06/17 21:00 02/05/17 20:59 01/10/17 20:45 Tamsulosin HCl (Flomax) 0.4 mg BEDTIME ORAL 01/06/17 21:00 11/11/17 20:59 01/10/17 20:45 Trazodone HCl (Desyrel) 150 mg BEDTIME ORAL 01/06/17 21:00 02/05/17 20:59 01/10/17 20:45 Vancomycin HCl (Vanco rx to dose) 1 ea DAILY PRN MISC PER RXPROTOCOL 01/05/17 18:30 02/04/17 18:29 Vancomycin HCl/ Dextrose 250 ml @ 125 mls/hr Q24H IVPB 01/05/17 20:00 01/12/17 21:00 01/10/17 20:01 Vitamin D (Vitamin D) 1,000 intlu DAILY ORAL 01/07/17 09:00 02/06/17 08:59 01/11/17 09:14 Jose Willson MD Jan 11, 2017 18:13
[2017-01-11 20:00] VITALS: BP 119/58
[2017-01-11] MEDS: Carvedilol 12.5mg tab ORAL SCH (21:23)
[2017-01-11] MEDS: Tamsulosin 0.4mg cap ORAL SCH (21:26)
[2017-01-11] MEDS: TraZODone 100mg tab ORAL SCH (21:26)
[2017-01-11] MEDS: Vancomycin 1.5 GM/D5W 250ML IVPB SCH (22:16)
[2017-01-11] MEDS: Dyna-Hex 2% Top Sol 2oz TOPIC SCH (22:35)
[2017-01-12] VITALS: BP 129/68
[2017-01-12 04:42] VITALS: BP 126/58
[2017-01-12] MEDS: Piperacillin/Tazobactam 4.5 GM in NS 110 ML IV SCH (06:37)
[2017-01-12 06:59] LABS: BD FL VOLUME 24 mL
[2017-01-12 07:00] LABS: BD FL SOURCE PLEURAL; BD FL VOLUME 24 mL; LDH, BODY FLUID 84 U/L
[2017-01-12 07:00] LABS: BD FL SOURCE THORACENTESIS; LDH, BODY FLUID 289 U/L
[2017-01-12 07:38] LABS: INR 1.7 (0.9-1.1); PROTHROMBIN TIME 17.4 SEC (9.30-11.50)
[2017-01-12 07:51] LABS: ANION GAP 3 mmol/L (5-15); CALCIUM 8.7 MG/DL (8.5-10.1); CARBON DIOXIDE 32 MMOL/L (21-32); CHLORIDE 109 MMOL/L (98-107); CREATININE 1.2 MG/DL (0.55-1.30); POTASSIUM 3.7 MMOL/L (3.5-5.1); SODIUM 144 MMOL/L (136-145)
[2017-01-12 08:34] VITALS: BP 127/65
[2017-01-12 09:00] VITALS: BP 127/65
[2017-01-12] MEDS: Docusate 250mg cap ORAL SCH (09:00)
[2017-01-12] MEDS: Carvedilol 12.5mg tab ORAL SCH (09:00)
[2017-01-12] MEDS: Vitamin D 1000 IU Tab ORAL SCH (09:00)
[2017-01-12] MEDS: Losartan 50mg tab ORAL SCH (09:00)
[2017-01-12] MEDS: Oxybutynin 5mg tab ORAL SCH (09:00)
[2017-01-12 10:34] LABS: MEAN CORPUSCULAR HGB CONC 31.8 G/DL (32.0-36.0); MEAN CORPUSCULAR VOLUME 101 FL (80-99); PLATELET COUNT 346 K/UL (150-450)
[2017-01-12] MEDS ORDERED: Propofol 200mg/20ml IV ONE (10:50)
[2017-01-12] MEDS ORDERED: Atropine Sulfate 0.4mg/ml inj ONE (10:50)
[2017-01-12] MEDS ORDERED: NS 500ML IV ONE (10:50)
--- NOTE | 2017-01-12 11:03 | Pre-Procedure Note/Attestation ---
Pre-Procedure Note/Attestation Complete Prior to Procedure Planned Procedure: not applicable Procedure Narrative: egd Indications for Procedure Pre-Operative Diagnosis: GIB Attestation I attest that I discussed the nature of the procedure; its benefits; risks and complications; and alternatives (and the risks and benefits of such alternatives ), prior to the procedure, with the patient (or the patient's legal rental representative). I attest that, if there was a reasonable possibility of needing a blood transfusion, the patient (or the patient's legal rental representative) was given the [facility] standardized written summary, pursuant to the Zane Ann Blood Safety Act ([place] Health and Safety Code # 1645, as amended). I attest that I re-evaluated the patient just prior to the surgery and that there has been no change in the patient's H&P, except as documented below: TEDDY HINSON Jan 12, 2017 11:03
--- NOTE | 2017-01-12 11:16 | Endoscopy Procedure Note ---
Endoscopy Procedure Note Indication for Procedure: gib Procedures Performed: EGD Operative Findings/Diagnosis: upper GIB Specimen: yes Pt Tolerated Procedure Well: Yes Estimated Blood Loss: none Anesthesiologist: see chart Anesthesia: MAC Implant(s) used?: No 50 yrs or older w/o bx or poly: Not Applicable 10yrs. F/U not recommended: Not Applicable TEDDY HINSON Jan 12, 2017 11:16
--- NOTE | 2017-01-12 11:18 | Wound Care Consultation ---
Wound Assessment Wound Assessment #1: Wound Number: 1 Wound Present on Admission: No New Wound: Yes Status Change of Wound: No Wound Location Body Site Modif: right Wound Location Body Site: ear Wound Type: pressure ulcer Yadira Test: Does not Yadira Pressure Ulcer Stage: I Wound Length: 0.3 Wound Width: 0.3 Percent of Wound [place]/Red: 100 Wound Drainage Amount: None Wound Drainage Odor: None/Absent Tissue Surrounding Wound: Erythemic Wound General Appearance: Reddened Wound Assessment #2: Wound Number: 2 Wound Present on Admission: No New Wound: Yes Status Change of Wound: No Wound Location Body Site Modif: left Wound Location Body Site: ear Wound Type: pressure ulcer Yadira Test: Does not Yadira Pressure Ulcer Stage: Deep Tissue Injury Wound Thickness: Full Thickness Wound Length: 0.3 Wound Width: 0.3 Wound Depth: utd Percent of Wound Purple/Maroon: 100 Wound Drainage Amount: None Wound Drainage Odor: None/Absent Tissue Surrounding Wound: Intact Wound General Appearance: Reddened - maroon Wound Comment #1 Right ear stage I pressure ulcer #2 Left ear DTI pressure ulcer Recommendation -Left and right ear pressure ulcers, cleanse with saline, pat dry, apply skin barrier film, cover with Biatain silicone daily and PRN soiled/dislodged -Optimize nutrition -Keep clean and dry -Turn and reposition -Offload both heels -Heel protector on both heels -Assess and f/u accordingly for any changes SALVADOR ROSAS RN Jan 12, 2017 11:18
[2017-01-12] MEDS ORDERED: Atropine Inj 1mg/10ml Syr ONE (11:39)
--- NOTE | 2017-01-12 12:07 | Anethesia Preoperative Eval ---
Anesthesia Pre-op PMH/ROS General Date of Evaluation: Jan 12, 2017 Time of Evaluation: 10:50 Anesthesiologist: Nancy ASA Score: ASA 4 Mallampati Score Class I : Soft palate, uvula, fauces, pillars visible Class II: Soft palate, uvula, fauces visible Class III: Soft palate, base of uvula visible Class IV: Only hard plate visible Mallampati Classification: Class III Surgeon: Blayne Diagnosis: Anemia, Dark Stools Surgical Procedure: EGD Anesthesia History: none Family History: no anesthesia problems Allergies: Coded Allergies: No Known Allergies (Verified , 05/15/09) Medications: see eMAR Past Medical History Cardiovascular: Reports: other - CHF, Pulmonary: Reports: other - pneumonia Other: obesity, other - hyponatremia Anesthesia Pre-op Phys. Exam Physician Exam Last Vital Signs Date Time Temp Pulse Resp B/P (MAP) Pulse Ox O2 Delivery O2 Flow Rate FiO2 01/12/17 09:00 108 127/65 01/12/17 08:34 97.3 22 100 Non-Rebreather 15.0 01/11/17 20:02 100 Constitutional: NAD Neurologic: CN 2-12 intact Cardiovascular: RRR Respiratory: CTA Gastrointestinal: S/NT/ND Airway Exam Mallampati Score: Class III MO: limited ROM: limited Teeth: missing, loose - front tooth Anesthesia Pre-op A/P Labs Hematology Test 01/12/17 05:20 White Blood Count 29.0 K/UL (4.8-10.8) *H Red Blood Count 2.70 M/UL (4.70-6.10) L Hemoglobin 8.6 G/DL (14.2-18.0) L Hematocrit 27.2 % (42.0-52.0) L Mean Corpuscular Volume 101 FL (80-99) H Mean Corpuscular Hemoglobin 32.0 PG (27.0-31.0) H Mean Corpuscular Hemoglobin Concent 31.8 G/DL (32.0-36.0) L Red Cell Distribution Width 12.0 % (11.6-14.8) Platelet Count 346 K/UL (150-450) Mean Platelet Volume 7.0 FL (6.5-10.1) Neutrophils (%) (Auto) % (45.0-75.0) Lymphocytes (%) (Auto) % (20.0-45.0) Monocytes (%) (Auto) % (1.0-10.0) Eosinophils (%) (Auto) % (0.0-3.0) Basophils (%) (Auto) % (0.0-2.0) Neutrophils % (Manual) Pending Lymphocytes % (Manual) Pending Platelet Estimate Pending Platelet Morphology Pending Coagulation Test 01/12/17 05:20 Prothrombin Time 17.4 SEC (9.30-11.50) H Prothromb Time International Ratio 1.7 (0.9-1.1) H Activated Partial Thromboplast Time 30 SEC (23-33) Chemistry Test 01/12/17 05:20 Sodium Level 144 MMOL/L (136-145) Potassium Level 3.7 MMOL/L (3.5-5.1) Chloride Level 109 MMOL/L (98-107) H Carbon Dioxide Level 32 MMOL/L (21-32) Anion Gap 3 mmol/L (5-15) L Blood Urea Nitrogen 44 mg/dL (7-18) H Creatinine 1.2 MG/DL (0.55-1.30) Estimat Glomerular Filtration Rate mL/min (>60) Glucose Level 144 MG/DL (74-106) H Calcium Level 8.7 MG/DL (8.5-10.1) Studies Pre-op Studies: EKG - AFIB Risk Assessment & Plan Assessment: Pt. came down with NRBM and O2 sat 96%. VSS. Pt alert but not fully oranited. Plan: plan discussed with Dr. Cisneros. MAC anesthesia with NRBM and ETCO monitor Status Change Before Surgery: No Pre-Antibiotics Given Within 1 Hr of Incision: Doris Banuelos CRNA Jan 12, 2017 12:07
[2017-01-12 12:15] LABS: BAND NEUTROPHILS % (MANUAL) 1 % (0-8); BASOPHILS % (MANUAL) 0 % (0-2); EOSINOPHILS % (MANUAL) 0 % (0-3); LYMPHOCYTES % (MANUAL) 5 % (20-45); MACROCYTES 1+; NEUTROPHILS % (MANUAL) 86 % (45-75); PLATELET ESTIMATE ADEQUATE; PLATELET MORPHOLOGY NORMAL; TOTAL CELLS COUNTED 100
[2017-01-12] MEDS ORDERED: Tubing IV Secondary IV ONE (15:58)
--- NOTE | 2017-01-12 23:38 | Diagnostic Imaging Report ---
APPROVED REPORT CPT Code: 14997 Present Symptoms Comments: Swellng BILATERAL: Imaging reveals a patent deep venous system bilaterally. There is no evidence of thrombus within the femoral, popliteal or tibial segments. The greater saphenous veins are also within normal limits. Doppler indicates normal spontaneous flow within these segments.
--- NOTE | 2017-01-13 06:15 | Discharge Summary ---
DATE OF ADMISSION: 01/05/2017 DATE OF DISCHARGE: 01/12/2017 SUMMARY PERTINENT HISTORY: The patient presented with shortness of breath and pleural effusions and congestive heart failure. There was a prior history of hypertension, dementia, BPH, diverticulosis, osteoarthritis, TURP, cataract surgery. PERTINENT PHYSICAL FINDINGS: See the note dictated by Dr. Oropeza. CHEST: Showed decreased breath sounds of the right thigh. NECK: Note that the neck shows trachea deviated to the right. HEART: Regular rhythm. ABDOMEN: Soft. EXTREMITIES: No edema. COURSE IN THE HOSPITAL: The patient had directives to DNR. He was treated for pneumonia and congestive heart failure. He did have evidence of a gastrointestinal bleeding and went to the gastrointestinal laboratory by Dr. Cisneros. However, in the gastrointestinal laboratory, he developed cardiopulmonary arrest. He had DNR directive and the patient . FINAL DIAGNOSES: 1. Cardiopulmonary arrest. 2. Congestive heart failure, acute on chronic diastolic. 3. Pneumonia. 4. Gastrointestinal bleeding. DISPOSITION: The patient . Family notified. Gregory Mckeon M.D. DR: Sergio JOB#: [id number] CC:
--- NOTE | 2017-01-13 09:00 | Procedure Note ---
DATE OF PROCEDURE: 01/12/2017 SURGEON: Allen Cisneros M.D. ANESTHESIA: Per [employer] [employer]. Please see the chart. PROCEDURE: Upper endoscopy with hemostasis, biopsy, tattooing. INDICATION: Upper GI bleeding. The procedure, risks, benefits, and possible consequences, including hemorrhage, aspiration, perforation and infection, and alternative treatments, were explained to the patient/legal guardian by Dr. Allen Cisneros and the patient/legal guardian understood and accepted these risks. DESCRIPTION OF PROCEDURE: After informed consent was obtained and the patient was adequately sedated, Olympus upper endoscope was advanced from mouth into the second portion of the duodenum and retroflexion was performed in the stomach. 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 Then, we started our hemostasis procedure. First, we injected about 2 mL of 1:10,000 dilution epinephrine around this lesion. Then we used a cold probe cauterization technique to cauterize this vessel, which was successful. Subsequently, we tattooed this area, did a biopsy of the antrum to rule out H. pylori infection, and I terminated the procedure. After the procedure was terminated, the patient became hypotensive and hypoxic. Actually, the patient was coded in the GI lab and Anesthesia the patient was given epinephrine and other medication to bring him back and while we coding, we called the family because the patient had DNR/DNI status. We had a long discussion with the family regarding possibility of intubating him. The family decided they do not want anything done and so the patient . Allen Cisneros M.D. DR: KRISTA JOB#: [id number] CC:
[2017-01-13 11:37] LABS: COMMENT,BODY FLUID PATHOLOGIST COMMENT
== END 2017-01-12 11:40 | disposition expired | DRG 193 ==
LOC: EDBD 15:16 → EMR 16:51 → 2E 16:59 → EDBEDREQ 17:33 → EDBEDREQSVC 18:11 → 2E 20:23 → EDBEDREQ 21:17 → 4W 21:37
PROC: 0W993ZZ Drainage of Right Pleural Cavity, Percutaneous Approach (ICD-10-PCS; 2017-01-10)
PROC: 3E0G8GC Introduction of Other Therapeutic Substance into Upper GI, Via Natural or Artificial Opening Endoscopic (ICD-10-PCS; principal; 2017-01-12 11:05)
PROC: 0D578ZZ Destruction of Stomach, Pylorus, Via Natural or Artificial Opening Endoscopic (ICD-10-PCS; principal; 2017-01-12 11:05)
PROC: 0DB78ZX Excision of Stomach, Pylorus, Via Natural or Artificial Opening Endoscopic, Diagnostic (ICD-10-PCS; principal; 2017-01-12 11:05)
DX: J18.9 Pneumonia, unspecified organism (principal); I50.33 Acute on chronic diastolic (congestive) heart failure; K31.82 Dieulafoy lesion (hemorrhagic) of stomach and duodenum; J90 Pleural effusion, not elsewhere classified; K92.2 Gastrointestinal hemorrhage, unspecified; F03.91 Unspecified dementia, unspecified severity, with behavioral disturbance; E87.1 Hypo-osmolality and hyponatremia; F03.90 Unspecified dementia, unspecified severity, without behavioral disturbance, psychotic disturbance, mood disturbance, and anxiety; F33.9 Major depressive disorder, recurrent, unspecified; J98.11 Atelectasis; I10 Essential (primary) hypertension; I73.89 Other specified peripheral vascular diseases; E78.5 Hyperlipidemia, unspecified; Z66 Do not resuscitate; K57.90 Diverticulosis of intestine, part unspecified, without perforation or abscess without bleeding; N40.0 Benign prostatic hyperplasia without lower urinary tract symptoms; I73.9 Peripheral vascular disease, unspecified; K21.9 Gastro-esophageal reflux disease without esophagitis; M19.90 Unspecified osteoarthritis, unspecified site; R09.02 Hypoxemia
CPT/HCPCS: 36415; 36569; 71010; 71250; 76937; 76942; 80048; 80053; 80202; 82962; 83615; 83880; 83930; 83935; 83986; 84300; 84484; 84550; 85007; 85025; 85610; 85730; 87070; 87081; 87205; 88104; 89050; 89051; 92950; 93005; 93970; 94003; 94150; 94640; 94664; 94760; 99285; J0171; J7620